=== PATIENT | male | born 1950 | race Caucasian/White ===

== ENCOUNTER 2016-10-20 19:43 | Emergency (ER) | payer OTHER, MEDICAID ==
[2016-10-20] MEDS ORDERED: ONDANSETRON 4 MG/2 ML VIAL ONE (20:19)
--- NOTE | 2016-10-20 20:28 | EDPHY ---
HPI/HX/ROS/PE/MDM Narrative: CHIEF COMPLAINT: Vomiting, memory deficits HISTORY OF PRESENT ILLNESS: This patient is a 66 year old male with history of paranoid schizophrenia who presents to the Emergency Department complaining of acute onset vomiting beginning this morning and memory loss over the past 2-3 days. He states that he did not drink any water yesterday because he "wasn't thinking straight." Per brother, the patient has often been unable to answer questions over the past couple of days or has responded with, "I don't remember. " The patient denies any additional complaints including fever, cough, shortness of breath, or chest pain. No recent falls or head injuries. He has had one prior visit to the ED for memory loss which was found to be secondary to dehydration at that time. He takes Clozaril and Stelazine to treat his schizophrenia and states that he has been compliant with these medications. REVIEW OF SYSTEMS: Aside from elements discussed in the HPI, a comprehensive 10-point review of systems was reviewed and is negative. History and ROS are limited secondary to the patient's psychiatric condition. PAST MEDICAL HISTORY: Paranoid schizophrenia SOCIAL HISTORY: Brother (masonry contractor) and niece at bedside. PHYSICAL EXAM: VITAL SIGNS: Reviewed by me GENERAL: Well-developed, disheveled, resting comfortably in no respiratory distress. HEENT: Atraumatic. Eyes: No icterus, no injection. Mouth: moist mucous membranes. No erythema or lesions. Neck: supple with no adenopathy. LUNGS: Clear to auscultation bilaterally, no wheezes, rhonchi or rales. CARDIAC: Regular rate and rhythm, no rubs, murmurs or gallops. ABDOMEN: Soft, nontender, nondistended, bowel sounds normal. BACK: No CVA tenderness. EXTREMITIES: No trauma. No edema. Range of motion is normal throughout. NEURO: Alert and oriented x3, grossly nonfocal. SKIN: Warm and dry, no rash. PSYCHIATRIC: Normal mentation, no agitation. Portions of this note were transcribed by a medical liaison. I personally performed a history, physical exam, medical decision making, and confirmed accuracy of information the transcribed note. ED Course: 66-year-old male with history of paranoid schizophrenia presents with acute onset vomiting over the past 24 hours and complaint of worsening memory loss over the past 2-3 days. He is alert at time of presentation. His exam is benign. Will proceed with labs. IV established. 0.5mg IV Dilaudid, 4mg IV Zofran, and 1L IV NS administered. Labs obtained and are unremarkable. ETOH screen is negative. 2146: The patient is up and walking around the Emergency Department without difficulty. He reports improvement to his nausea following administration of Zofran and fluids. He will be administered an additional 1L IV NS and pass a PO challenge prior to discharge. He will be given customary return precautions as discussed with his brother/masonry contractor and instructions to follow-up with his PCP for any persistent complaints. MDM: Differential diagnosis of the patient's nausea and vomiting was considered including but not limited to gastroenteritis, gastritis, alcohol intoxication, withdrawal symptoms, intraabdominal processes including appendicitis, pancreatitis, bowel obstruction and medication side effect. After the history was obtained and physical exam performed, the following differential for the patient's altered mental status was considered included but was not limited to hypoglycemia, electrolyte disturbances, intercranial hemorrhage, tumor, drug or alcohol intoxication, stroke, or TIA. - Data Points Laboratory Results: Laboratory Results 10/20/16 20:15 10/20/16 20:15 Medications Given: Discontinued Medications Hydromorphone HCl (Dilaudid) 0.5 mg IVP EDNOW ONE Stop: 10/20/16 20:49 Last Admin: 10/20/16 21:37 Dose: Not Given Sodium Chloride (Ns) 1,000 mls @ 0 mls/hr IV ONCE ONE PRN Reason: Wide Open Stop: 10/20/16 20:31 Last Admin: 10/20/16 20:32 Dose: 1,000 mls Sodium Chloride (Ns) 1,000 mls @ 0 mls/hr IV ONCE ONE PRN Reason: Wide Open Stop: 10/20/16 21:56 Last Admin: 10/20/16 22:05 Dose: 1,000 mls Ondansetron HCl (Zofran) 4 mg IVP EDNOW ONE Stop: 10/20/16 20:31 Last Admin: 10/20/16 20:32 Dose: 4 mg Ondansetron HCl (Zofran Odt 4 Mg Prepack#2) 1 btl TAKEHOME EDNOW ONE Stop: 10/20/16 22:50 Last Admin: 10/20/16 22:30 Dose: 1 btl General Time Seen by Provider: 10/20/16 20:18 Initial Vital Signs: Initial Vital Signs Temperature (C) 36.8 C 10/20/16 19:50 Heart Rate 77 10/20/16 19:50 Respiratory Rate 20 10/20/16 19:50 Blood Pressure 150/65 H 10/20/16 19:50 O2 Sat (%) 96 10/20/16 19:50 O2 Delivery Mode Room Air Allergies/Adverse Reactions: Penicillins Allergy (Unknown, Verified 02/28/15 21:50) Rash CATS Allergy (Uncoded 02/28/15 21:50) Itching Home Medications: Medication Instructions Recorded cloZAPine [Clozaril (*)] 200 mg PO DAILY@07/23/09 Docusate Sodium [Colace 100 MG (*)] 200 mg PO HS@23 PRN 10/02/14 Trifluoperazine HCl [Stelazine 2MG 2 mg PO BID@10/02/14 (*)] cloZAPine [Clozaril (*)] 100 mg PO DAILY@10/02/14 Ondansetron Odt [Zofran Odt 4 mg 4 mg PO Q6 PRN #8 tab 10/20/16 (RX)] Departure - Departure Disposition: Home, Routine, Self-Care Clinical Impression: Dehydration, Nausea Condition: Good Instructions: Ondansetron (By mouth), Dehydration (ED), Acute Nausea and Vomiting (ED) Additional Instructions: 1. Take 4mg Zofran every 4-6 hours as needed for nausea and vomiting. 2. Drink plenty of fluids. It may help to drink only clear fluids until your nausea improves. I recommend a bland diet when you feel ready to eat. 3. Follow-up with your primary care provider if your nausea and confusion does not improve in the next 2-3 days. 4. Return to the Emergency Department if you experience severe abdominal pain, uncontrollable vomiting, severe headache, worsening confusion, or for other serious concerns. Referrals: Jhonatan Lyles MD [Primary Care Provider] - As per Instructions Prescriptions: Ondansetron Odt [Zofran Odt 4 mg (RX)] 4 mg PO Q6 PRN #8 tab PRN Reason: Nausea Report Scribed for: Tamara Mathew Report Scribed by: Marlyn Mora Date of Report: 10/20/16 Time of Report: 20:22
[2016-10-20] MEDS ORDERED: ONDANSETRON 4 MG/2 ML VIAL IVP ONE (20:30)
[2016-10-20] MEDS ORDERED: NS 1,000 ML IV ONE ×2 (20:30→21:55)
[2016-10-20 20:38] LABS: % IMMATURE GRANULYOCYTES 0.4 % (0.0-1.1); ABSOLUTE IMMATURE GRANULOCYTES 0.04 10^3/uL (0.00-0.10); ADD DIFF? NO; ADD MORPH? NO; ADD SCAN? NO; ATYPICAL LYMPHOCYTE FLAG 0 (0-99); FRAGMENT RBC FLAG 0 (0-99); HEMATOCRIT 42.4 % (40.0-51.0); HEMOGLOBIN 14.8 g/dL (13.7-17.5); LEFT SHIFT FLG 10 (0-99); LIPEMIA HEMOLYSIS FLAG 90 (0-99); MEAN CELL HEMOGLOBIN 31.6 pg (27.9-34.1); MEAN CELL HEMOGLOBIN CONCENTR. 34.9 g/dL (32.4-36.7); MEAN CELL VOLUME 90.4 fL (81.5-99.8); MEAN PLATELET VOLUME 9.6 fL (8.7-11.7); PLATELET CLUMPS FLAG 20 (0-99); PLATELET COUNT 256 10^3/uL (150-400); RED BLOOD CELL COUNT 4.69 10^6/uL (4.40-6.38); RED CELL DISTRIBUTION WIDTH 12.1 % (11.5-15.2)
[2016-10-20] MEDS ORDERED: HYDROmorphONE/DILAUDID 1 MG/ML SYR IVP ONE (20:48)
[2016-10-20 20:58] LABS: ANION GAP 14 mEq/L (8-16); CALCIUM 9.4 mg/dL (8.5-10.4); CARBON DIOXIDE 20 mEq/l (22-31); CHLORIDE 105 mEq/L (97-110); ETHANOL SERUM < 10 mg/dL (0-10); GLOMERULAR FILTRATION RATE > 60; GLUCOSE 119 mg/dL (70-100); POTASSIUM 3.8 mEq/L (3.5-5.2); SODIUM 139 mEq/L (134-144)
[2016-10-20 21:37] LABS: COLOR YELLOW; LEUKOCYTE ESTERASE,URINE NEGATIVE (NEGATIVE); NITRITE,URINE NEGATIVE (NEGATIVE)
[2016-10-20 21:43] LABS: BACTERIA TRACE /hpf (NONE SEEN); MUCUS TRACE /lpf (NONE-1+)
[2016-10-20 22:06] VITALS: RESP 16; O2SAT 97
[2016-10-20] MEDS ORDERED: ONDANSETRON 4MG PREPACK#2 BTL TAKEHOME ONE ×2 (22:37→22:49)
[2016-10-20 22:49] VITALS: BP 142/76; PULSE 88; TEMP 98.1
== END 2016-10-20 22:50 | disposition home or self-care (01) ==
DX: E86.0 Dehydration (principal)
CPT/HCPCS: 96361; 96374; 99284; J2405; G0480

== ENCOUNTER 2016-12-28 15:39 | Emergency (ER) | payer OTHER, MEDICAID ==
[2016-12-28 15:46] VITALS: O2SAT 97
[2016-12-28] MEDS ORDERED: NS 1,000 ML IV ONE ×2 (15:59)
--- NOTE | 2016-12-28 16:02 | EDPHY ---
HPI/HX/ROS/PE/MDM Narrative: CHIEF COMPLAINT: Memory problems HPI: This patient is a 66 year old male with history of paranoid schizophrenia arriving with his family members complaining of memory difficulties. He has had similar episodes in the past which seem to be related to dehydration. Yesterday , his family noted he seemed more lethargic. Today, he began having memory difficulties and seeming much more confused that usual. He has had trouble staying awake, and has wanted to sleep all day. His brother at bedside states he wants his blood chemistries checked. The patient states he feels alright currently. He admits he has not had enough water to drink. He denies any changes in sensation in his arms or legs. He denies recent illness. No fever, chills, cough, or other associated symptoms. REVIEW OF SYSTEMS: Aside from elements discussed in the HPI, a comprehensive 10-point review of systems was reviewed and is negative. PMH: Paranoid schizophrenia SOCIAL HISTORY: Brother (insurance processor) and niece at bedside. PHYSICAL EXAM: General: Patient is somewhat disheveled. Odd affect. Patient is alert, in no acute distress. ENT:Eyes are normal to inspection. ENT inspection normal. Neck: Normal inspection. Full range of motion. Respiratory:No respiratory distress. Breath sounds normal bilaterally. Cardiovascular: Regular rate and rhythm. Strong peripheral pulses. Normal cap refill. Abdomen:The abdomen is nontender to palpation. There are no peritoneal signs. There are normal bowel sounds. Back: Normal to inspection. No tenderness to palpation. Skin: Normal color. No rash. Warm and dry. Extremities: Normal appearance. Full range of motion. Neuro: Oriented x3. Normal motor function. Normal sensory function. Portions of this note were transcribed by an ED scribe. I personally performed the history, physical exam, and medical decision making; and confirm the accuracy of the information in the transcribed note. ED Course: Plan for labs including CBC, BMP, Troponin. Plan to administer 2L IV NS for dehydration relief. Plan for CT head. 17:[address] Chung, radiologist. CT head negative for acute processes. 17:15 Reassessed patient. Offered admission for continued evaluation. The patient declines and would like to be discharged home. MDM: This patient presents with complaint by himself and his brother that his memory has been off, although they seem to agree this is a long-standing problem. They are particularly concerned that he may be dehydrated, but I see no signs of ARF or dehydration on labs or clinical exam. The patient denies any focal complaints or infectious symptoms or fever. CTH is negative. I see no signs of infectious process, CVA, ARF, pneumonia. I discussed our workup with the patient and family, and offered admission if they feel patient is unsafe at home. Family member feels comfortable taking patient home and they will monitor him closely. - Data Points Imaging Results: Imaging Impressions Head CT 12/28/16 16:00 Impression: 1. Normal CT of the head with no acute abnormality identified and no change from 2009. 2. Minimal nasal ethmoid sinus opacification. Results called and discussed with Derick Trinh MD on 12/28/2016 at 17:06 Imaging: Discussed imaging studies w/ licensed funeral director and embalmer Radiologist Laboratory Results: Laboratory Results 12/28/16 15:50 12/28/16 15:50 12/28/16 12/28/16 15:50 15:50 WBC 7.97 10^3/uL 10^3/uL (3.80-9.50) RBC 4.61 10^6/uL 10^6/uL (4.40-6.38) Hgb 14.5 g/dL g/dL (13.7-17.5) Hct 41.8 % % (40.0-51.0) MCV 90.7 fL fL (81.5-99.8) MCH 31.5 pg pg (27.9-34.1) MCHC 34.7 g/dL g/dL (32.4-36.7) RDW 11.9 % % (11.5-15.2) Plt Count 306 10^3/uL 10^3/uL (150-400) MPV 9.0 fL fL (8.7-11.7) Neut % (Auto) 79.5 % H % (39.3-74.2) Lymph % (Auto) 10.5 % L % (15.0-45.0) [place] % (Auto) 8.7 % % (4.5-13.0) Eos % (Auto) 0.3 % L % (0.6-7.6) Baso % (Auto) 0.5 % % (0.3-1.7) Nucleat RBC Rel Count 0.0 % % (0.0-0.2) Absolute Neuts (auto) 6.34 10^3/uL 10^3/uL (1.70-6.50) Absolute Lymphs (auto) 0.84 10^3/uL L 10^3/uL (1.00-3.00) Absolute Monos (auto) 0.69 10^3/uL 10^3/uL (0.30-0.80) Absolute Eos (auto) 0.02 10^3/uL L 10^3/uL (0.03-0.40) Absolute Basos (auto) 0.04 10^3/uL 10^3/uL (0.02-0.10) Absolute Nucleated RBC 0.00 10^3/uL 10^3/uL (0-0.01) Immature Gran % 0.5 % % (0.0-1.1) Immature Gran # 0.04 10^3/uL 10^3/uL (0.00-0.10) Sodium 139 mEq/L mEq/L (134-144) Potassium 3.7 mEq/L mEq/L (3.5-5.2) Chloride 104 mEq/L mEq/L (97-110) Carbon Dioxide 18 mEq/l L mEq/l (22-31) Anion Gap 17 mEq/L H mEq/L (8-16) BUN 21 mg/dL mg/dL (7-23) Creatinine 1.1 mg/dL mg/dL (0.7-1.3) Estimated GFR > 60 Glucose 106 mg/dL H mg/dL (70-100) Calcium 9.0 mg/dL mg/dL (8.5-10.4) Troponin I < 0.012 ng/mL ng/mL (0-0.034) Medications Given: Discontinued Medications Sodium Chloride (Ns) 1,000 mls @ 0 mls/hr IV ONCE ONE PRN Reason: Wide Open Stop: 12/28/16 16:00 Last Admin: 12/28/16 16:02 Dose: 1,000 mls Sodium Chloride (Ns) 1,000 mls @ 0 mls/hr IV ONCE ONE; Wide Open PRN Reason: Protocol Stop: 12/28/16 16:00 Last Admin: 12/28/16 16:03 Dose: Not Given General Time Seen by Provider: 12/28/16 15:52 Initial Vital Signs: Initial Vital Signs Temperature (C) 36.8 C 12/28/16 15:42 Heart Rate 89 12/28/16 15:42 Respiratory Rate 16 12/28/16 15:42 Blood Pressure 160/88 H 12/28/16 15:42 O2 Sat (%) 97 12/28/16 15:42 O2 Delivery Mode Room Air Allergies/Adverse Reactions: Penicillins Allergy (Unknown, Verified 12/29/16 10:49) Rash CATS Allergy (Uncoded 02/28/15 21:50) Itching Home Medications: Medication Instructions Recorded cloZAPine [Clozaril (*)] 200 mg PO DAILY@07/23/09 Trifluoperazine HCl [Stelazine 2MG 2 mg PO BID@10/02/14 (*)] cloZAPine [Clozaril (*)] 100 mg PO DAILY@10/02/14 Departure - Departure Disposition: Home, Routine, Self-Care Clinical Impression: Altered mental status Condition: Good Instructions: Altered Mental Status (ED) Additional Instructions: 1. Follow up with your primary care physician next week. 2. Drink plenty of fluids and stay well hydrated. 3. Return to the emergency department for severe headache, worsening confusion, fever, or other worsening of condition. Referrals: Jhonatan Lyles MD [Primary Care Provider] - As per Instructions Report Scribed for: Derick Trinh Report Scribed by: Shadia Land Date of Report: 12/28/16 Time of Report: 16:02
[2016-12-28 16:05] LABS: % IMMATURE GRANULYOCYTES 0.5 % (0.0-1.1); ABSOLUTE IMMATURE GRANULOCYTES 0.04 10^3/uL (0.00-0.10); ADD DIFF? NO; ADD MORPH? NO; ADD SCAN? NO; ATYPICAL LYMPHOCYTE FLAG 10 (0-99); FRAGMENT RBC FLAG 0 (0-99); HEMATOCRIT 41.8 % (40.0-51.0); HEMOGLOBIN 14.5 g/dL (13.7-17.5); LEFT SHIFT FLG 0 (0-99); LIPEMIA HEMOLYSIS FLAG 90 (0-99); MEAN CELL HEMOGLOBIN 31.5 pg (27.9-34.1); MEAN CELL HEMOGLOBIN CONCENTR. 34.7 g/dL (32.4-36.7); MEAN CELL VOLUME 90.7 fL (81.5-99.8); PLATELET CLUMPS FLAG 0 (0-99); PLATELET COUNT 306 10^3/uL (150-400); RED BLOOD CELL COUNT 4.61 10^6/uL (4.40-6.38); RED CELL DISTRIBUTION WIDTH 11.9 % (11.5-15.2)
[2016-12-28 16:16] LABS: ANION GAP 17 mEq/L (8-16); CARBON DIOXIDE 18 mEq/l (22-31); CHLORIDE 104 mEq/L (97-110); CREATININE 1.1 mg/dL (0.7-1.3); GLOMERULAR FILTRATION RATE > 60; GLUCOSE 106 mg/dL (70-100); POTASSIUM 3.7 mEq/L (3.5-5.2); SODIUM 139 mEq/L (134-144)
[2016-12-28 16:27] LABS: TROPONIN I < 0.012 ng/mL (0-0.034)
[2016-12-28 17:21] VITALS: BP 159/85; PULSE 84; RESP 18; TEMP 98.6
== END 2016-12-28 17:23 | disposition home or self-care (01) ==
DX: R41.82 Altered mental status, unspecified (principal)

== ENCOUNTER 2016-12-29 10:48 | Observation (INO) | payer OTHER, MEDICAID ==
[2016-12-29] MEDS ORDERED: ONDANSETRON 4 MG/2 ML VIAL IVP ONE ×2 (11:09→11:42)
[2016-12-29] MEDS ORDERED: NS 1,000 ML IV ONE ×2 (11:12→11:42)
[2016-12-29 11:27] LABS: % IMMATURE GRANULYOCYTES 0.7 % (0.0-1.1); ABSOLUTE IMMATURE GRANULOCYTES 0.07 10^3/uL (0.00-0.10); ADD DIFF? NO; ADD MORPH? NO; ADD SCAN? NO; ATYPICAL LYMPHOCYTE FLAG 0 (0-99); FRAGMENT RBC FLAG 0 (0-99); HEMATOCRIT 42.3 % (40.0-51.0); HEMOGLOBIN 14.7 g/dL (13.7-17.5); LEFT SHIFT FLG 0 (0-99); LIPEMIA HEMOLYSIS FLAG 90 (0-99); MEAN CELL HEMOGLOBIN 31.5 pg (27.9-34.1); MEAN CELL HEMOGLOBIN CONCENTR. 34.8 g/dL (32.4-36.7); MEAN CELL VOLUME 90.6 fL (81.5-99.8); MEAN PLATELET VOLUME 9.1 fL (8.7-11.7); PLATELET CLUMPS FLAG 20 (0-99); PLATELET COUNT 328 10^3/uL (150-400); RED BLOOD CELL COUNT 4.67 10^6/uL (4.40-6.38); RED CELL DISTRIBUTION WIDTH 11.9 % (11.5-15.2)
--- NOTE | 2016-12-29 11:47 | CPEKG ---
Heart Rate: 65 RR Interval: 923 P-R Interval: 132 QRSD Interval: 96 QT Interval: 444 QTC Interval: 462 P [place]: 85 QRS [place]: 77 T Wave [place]: 44 EKG Severity - NORMAL ECG - EKG Impression: SINUS RHYTHM Electronically Signed By: Conchita Freed 29-Dec-2016 14:59:23
[2016-12-29 11:51] LABS: ALANINE AMINOTRANSFERASE 31 IU/L (21-72); ALBUMIN 4.2 g/dL (3.5-5.0); ALKALINE PHOSPHATASE 98 IU/L (38-126); ANION GAP 15 mEq/L (8-16); ASPARTATE AMINOTRANSFERASE 36 IU/L (17-59); BILIRUBIN,TOTAL 1.2 mg/dL (0.1-1.4); BILIRUBIN-CONJUGATED 0.3 mg/dL (0.0-0.5); BILIRUBIN-UNCONJUGATED 0.9 mg/dL (0.0-1.1); CALCIUM 9.3 mg/dL (8.5-10.4); CARBON DIOXIDE 23 mEq/l (22-31); CHLORIDE 104 mEq/L (97-110); GLOMERULAR FILTRATION RATE > 60; GLUCOSE 129 mg/dL (70-100); POTASSIUM 3.7 mEq/L (3.5-5.2); SODIUM 142 mEq/L (134-144)
[2016-12-29 12:03] LABS: TROPONIN I < 0.012 ng/mL (0-0.034)
--- NOTE | 2016-12-29 12:08 | EDPHY ---
H & P Stated Complaint: "I think I'm dehydrated" here yesterday (unrelated issue);n/v since last pm Time Seen by Provider: 12/29/16 11:19 HPI/ROS: CHIEF COMPLAINT: vomiting since midnight HISTORY OF PRESENT ILLNESS: 66-year-old male history of schizophrenia, lives by himself, arrives via private vehicle with his brother who is also care provider stating the patient has had intractable nausea vomiting abdominal pain since midnight. He was seen emergency department yesterday for complaints of memory difficulties at which point he had CT imaging of the brain which is negative for acute pathology. The brother states he is experiencing normal mentation. No fever no chills. No abdominal trauma. Unknown if history of abdominal surgeries or not. No flu-like symptoms. No suicidal or homicidal ideation Brother states that initial interview that the patient necessitates admission because he cannot be discharged home as he is concerned about his ability to care for himself PRIMARY CARE PROVIDER:Dr. Jhonatan Lyles REVIEW OF SYSTEMS: A ten point review of systems was performed and is negative with the exception of the items mentioned in the HPI PAST MEDICAL & SURGICAL HISTORY: Schizophrenia. SOCIAL HISTORY: Nonsmoker lives by self PHYSICAL EXAM (Prior to examination, patient consented to physical exam, hands were washed and my usual and customary physical exam procedures followed) 1) GENERAL: Well-developed, well-nourished, alert and oriented. appears nontoxic, retching 2) HEAD: Normocephalic, atraumatic 3) HEENT: Pupils equal, round, reactive to light bilaterally. Sclera anicteric. Nasopharynx, oropharynx, clear, no lesions. Dry mucous membranes 4) NECK: Full range of motion, no meningeal signs. 5) LUNGS: Clear auscultation bilaterally, no wheezes, no rhonchi, no retractions. 6) HEART: Regular rate and rhythm, no murmur, no heave, no gallop. 7) ABDOMEN: No guarding, no rebound, no focal tenderness, negative McBurney's, negative Norris's, negative Rovsing's, negative peritoneal sign,I am unable to elicit any abdominal pain on exam 8) MUSCULOSKELETAL: Moving all extremities, no focal areas of tenderness, no obvious trauma. No peripheral edema or discoloration. 9) BACK: No CVA tenderness, no midline vertebral tenderness, no fluctuance, no step-off, no obvious trauma, no visual or palpable abnormality. 10) SKIN: No rash, no petechiae. 11) : Normal male external genitalia bilateral cremasteric reflex present and brisk, no high-riding testicle nontender testicles. . DIFFERENTIAL DIAGNOSIS: My differential diagnosis includes, but is not limited to, acute appendicitis, acute cholecystitis, bowel obstruction, acute pancreatitis,, gastritis and urinary tract infection. The patient understands that this diagnosis is provisional and can never be 100% accurate. This is a partial list of diagnoses considered. These considerations are based on history , physical exam, past history and reassessment. - Personal History Current Tetanus Diphtheria and Acellular Pertussis (TDAP): Yes Tetanus Vaccine Date: 2008 - Medical/Surgical History Hx Asthma: No Hx Chronic Respiratory Disease: No Hx Diabetes: No Hx Cardiac Disease: No Hx Renal Disease: No Hx Cirrhosis: No Hx Alcoholism: No Hx HIV/AIDS: No Hx Splenectomy or Spleen Trauma: No Other PMH: "pre-diabetic, paranoid schizophrania, right knee surgery, - Social History Smoking Status: Never smoked Constitutional: Initial Vital Signs Temperature (C) 36.7 C 12/29/16 10:50 Heart Rate 64 12/29/16 10:50 Respiratory Rate 16 12/29/16 10:50 Blood Pressure 123/82 H 12/29/16 10:50 O2 Sat (%) 98 12/29/16 10:50 O2 Delivery Mode Room Air Allergies/Adverse Reactions: Penicillins Allergy (Unknown, Verified 12/29/16 10:49) Rash CATS Allergy (Uncoded 02/28/15 21:50) Itching Home Medications: Medication Instructions Recorded cloZAPine [Clozaril (*)] 200 mg PO HS 07/23/09 Trifluoperazine HCl [Stelazine 2MG 2 mg PO BID 10/02/14 (*)] cloZAPine [Clozaril (*)] 100 mg PO DAILY 10/02/14 Docusate Sodium [Colace 100 MG (*)] 300 mg PO HS 12/29/16 Medical Decision Making - Diagnostics Imaging Results: Imaging Impressions Abdomen X-Ray 12/29/16 11:33 Impression: No obstruction. No source for pain identified. Chest X-Ray 12/29/16 11:33 Impression: No pneumonia. Abdomen CT 12/29/16 12:06 Impression: 1. Suspect mild gastroenteritis. There is no evidence of a small bowel obstruction. 2. Mild "thickening" of the distal portion of the appendix with no periappendiceal inflammation or fluid. Is there are any localized tenderness in this location? 3. Urinary bladder distention with mild prostatomegaly. 4. Chronic atrophy of the left kidney with some compensatory hypertrophy of the right kidney. Findings were discussed with Christina Freedman PA-C at 13:55, on 12/29/2016. Images reviewed myself ED Course/Re-evaluation: 2:15 p.m.: Re-evaluation, he complains of continued nausea and retching after multiple dosages of Zofran and Phenergan. I re-examined his abdomen at this time which remained soft no guarding or rebound no McBurney's point pain. Reviewed the imaging results. there is no by the radiologist indicating mild thickening of the distal portion of the appendix. On initial and on re- evaluation of the patient I am unable to elicit pain in general to the abdomen and more specifically at McBurney's point. The family feels the patient should not be discharged as they do not feel he is able to care for himself at this time given his current vomiting and retching. Plan will be admission to hospital service.Discussed case with secondary Supervising physician Dr. Conchita Freed. Phone consultation with hospitalist Dr. Lazo at 2:23 p.m. who will admit patient. - Data Points Laboratory Results: Laboratory Results 12/29/16 11:15 12/29/16 11:15 12/29/16 12/29/16 11:15 11:15 WBC 10.51 10^3/uL H 10^3/uL (3.80-9.50) RBC 4.67 10^6/uL 10^6/uL (4.40-6.38) Hgb 14.7 g/dL g/dL (13.7-17.5) Hct 42.3 % % (40.0-51.0) MCV 90.6 fL fL (81.5-99.8) MCH 31.5 pg pg (27.9-34.1) MCHC 34.8 g/dL g/dL (32.4-36.7) RDW 11.9 % % (11.5-15.2) Plt Count 328 10^3/uL 10^3/uL (150-400) MPV 9.1 fL fL (8.7-11.7) Neut % (Auto) 85.4 % H % (39.3-74.2) Lymph % (Auto) 8.6 % L % (15.0-45.0) [place] % (Auto) 4.9 % % (4.5-13.0) Eos % (Auto) 0.1 % L % (0.6-7.6) Baso % (Auto) 0.3 % % (0.3-1.7) Nucleat RBC Rel Count 0.0 % % (0.0-0.2) Absolute Neuts (auto) 8.98 10^3/uL H 10^3/uL (1.70-6.50) Absolute Lymphs (auto) 0.90 10^3/uL L 10^3/uL (1.00-3.00) Absolute Monos (auto) 0.52 10^3/uL 10^3/uL (0.30-0.80) Absolute Eos (auto) 0.01 10^3/uL L 10^3/uL (0.03-0.40) Absolute Basos (auto) 0.03 10^3/uL 10^3/uL (0.02-0.10) Absolute Nucleated RBC 0.00 10^3/uL 10^3/uL (0-0.01) Immature Gran % 0.7 % % (0.0-1.1) Immature Gran # 0.07 10^3/uL 10^3/uL (0.00-0.10) Sodium 142 mEq/L mEq/L (134-144) Potassium 3.7 mEq/L mEq/L (3.5-5.2) Chloride 104 mEq/L mEq/L (97-110) Carbon Dioxide 23 mEq/l mEq/l (22-31) Anion Gap 15 mEq/L mEq/L (8-16) BUN 23 mg/dL mg/dL (7-23) Creatinine 1.0 mg/dL mg/dL (0.7-1.3) Estimated GFR > 60 Glucose 129 mg/dL H mg/dL (70-100) Calcium 9.3 mg/dL mg/dL (8.5-10.4) Total Bilirubin 1.2 mg/dL mg/dL (0.1-1.4) Conjugated Bilirubin 0.3 mg/dL mg/dL (0.0-0.5) Unconjugated Bilirubin 0.9 mg/dL mg/dL (0.0-1.1) AST 36 IU/L IU/L (17-59) ALT 31 IU/L IU/L (21-72) Alkaline Phosphatase 98 IU/L IU/L (38-126) Troponin I < 0.012 ng/mL ng/mL (0-0.034) Total Protein 7.0 g/dL g/dL (6.3-8.2) Albumin 4.2 g/dL g/dL (3.5-5.0) Lipase 99.0 IU/L IU/L (23-300) Medications Given: Discontinued Medications Sodium Chloride (Ns) 1,000 mls @ 0 mls/hr IV ONCE ONE; Wide Open PRN Reason: Protocol Stop: 12/29/16 11:13 Last Admin: 12/29/16 11:15 Dose: 1,000 mls Sodium Chloride (Ns) 1,000 mls @ 0 mls/hr IV ONCE ONE PRN Reason: Wide Open Stop: 12/29/16 11:43 Last Admin: 12/29/16 12:00 Dose: 1,000 mls Ondansetron HCl (Zofran) 4 mg IVP EDNOW ONE Stop: 12/29/16 11:10 Last Admin: 12/29/16 11:15 Dose: 4 mg Ondansetron HCl (Zofran) 4 mg IVP EDNOW ONE Stop: 12/29/16 11:43 Last Admin: 12/29/16 12:00 Dose: 4 mg Promethazine HCl (Phenergan) 25 mg IVP EDNOW ONE Stop: 12/29/16 13:48 Last Admin: 12/29/16 13:51 Dose: 25 mg Departure - Departure Disposition: [facility] Inpatient Acute Clinical Impression: Nausea & vomiting Qualifiers: Vomiting type: unspecified Vomiting Intractability: intractable Qualified Code( s): R11.2 - Nausea with vomiting, unspecified Condition: Fair
[2016-12-29] MEDS ORDERED: IOPAMIDOL (ISOVUE-300) 100 ML BTL ONE (12:44)
[2016-12-29] MEDS ORDERED: PROMETHAZINE HCL 25 MG/ML INJ IVP ONE (13:47)
--- NOTE | 2016-12-29 15:42 | PDGENHP ---
History and Physical History and Physical: CC:NAUSEA AND VOMITING HISTORY: This patient comes into the ER today brought by family specifically his brother because of ongoing vomiting that started last night. He has had several episodes of emesis without blood, without abdominal pain, without changes in bowel function. The only the symptoms that the patient and his family notices that he has had more difficulty with memory for the last couple of days as well. He denies any chest pain or shortness of breath. When I specifically asked him he does recall having some chills and feeling hot at times as if he had ever having fever. He has no sore throat, earache, upper respiratory or lower respiratory symptoms, joint pains or myalgias, urinary symptoms. He has not traveled anywhere, and has not been around anyone else with similar symptoms. Notably the patient had a very similar episode 6 months ago she. ROS: A comprehensive 10 system review revealed no other significant findings PAST MEDICAL HISTORY: -Schizophrenia -developmental delay -Chronic gait instability of uncertain etiology, possibly related to the same cause this is developmental delay, occasional falls at home -an episode of chest pain with negative evaluation here FAMILY MEDICAL HISTORY: dementia in his father SOCIAL HISTORY: former cigar smoker now without tobacco use Previous alcohol consumption was moderate and is now sober MEDICATIONS: The patients list has been reconciled by our clinical pharmacist in the EMR. I have reviewed the list and ordered appropriate medicines. PHYSICAL EXAMINATION: Vital Signs: stable without fever [place]: sinus rhythm Examination: General: alert, oriented, good mentation, relaxed Skin: warm, dry, good color, no rash HEENT: normal Neck: no mass or jvd Resps: relaxed Lungs: clear breath sounds Heart: regular, no murmur Abdomen: soft, nondistended, nontender, +BS, no mass Upper Extremities: normal Lower Extremities: no edema, warm; the joints are unremarkable No Bleeding or bruising Neurologic: normal speech/language, normal etiologist, no focal weakness LABORATORY DATA: RADIOLOGY STUDIES: CT scan of abdomen and pelvis with contrast, my personal review of images: I do not see any specific acute abnormalities related to his current presentation. The radiologist has read thickening of part of the duodenum and proximal jejunum. I reviewed this. I do not see anything that really looks inflammatory per se or otherwise concerning about the bow and believe that this thickening may be a matter of contraction on the current images. Radiologist also comments on possible thickening of appendix. Chest x-ray is also done in the ER and I have reviewed the images from that and my impression: Normal chest x-ray, also read as normal by the radiologist 12 LEAD EKG: my personal reading of the 12 lead EKG from the ER: Normal 12 lead EKG was sinus rhythm ASSESSMENT: -INTRACTABLE NAUSEA VOMITING, UNCERTAIN ETIOLOGY BUT SUSPECT INFECTIOUS -MILD HYPERGLYCEMIA PARTLY RELATED TO THE ABOVE -IMPAIRED MEMORY NOTED BY PATIENT AND FAMILY IS MILD ON EXAMINATION HERE AND LIKELY CAUSED BY HIS GASTROINTESTINAL ILLNESS - POSSIBLY ABNORMAL CT SCAN OF APPENDIX WITH NO PAIN, TENDERNESS, OR FEVER - UNCERTAIN SIGNIFICANCE OF THIS FINDING AT THIS TIME PLANS: - placed on observation here in hospital -Antiemetics -IV hydration -Will follow his abdomen particularly the lower abdominal exam in regard to the question of abnormal appendix on CT as above I have reviewed the patient's case in detail with Jered hamlin of the emergency room I have reviewed the patient's past medical records as part of this assessment, including previous hospital admission records
[2016-12-29] MEDS ORDERED: ACETAMINOPHEN 325 MG TAB PO PRN (15:48)
[2016-12-29] MEDS ORDERED: TEMAZEPAM 15 MG CAP PO PRN (15:48)
[2016-12-29] MEDS ORDERED: ZOLPIDEM TARTRATE 5 MG TAB PO PRN (15:48)
[2016-12-29] MEDS ORDERED: ONDANSETRON DISINTEGRATING 4 MG TAB PO PRN (15:48)
[2016-12-29] MEDS ORDERED: ONDANSETRON 4 MG/2 ML VIAL IVP PRN (15:48)
[2016-12-29] MEDS ORDERED: NS 1,000 ML IV SCH (16:00)
[2016-12-29] MEDS ORDERED: cloZAPine 100 MG TAB PO SCH (21:00)
[2016-12-29] MEDS: TRIFLUOPERAZINE HCL 2 MG TAB PO SCH (22:07)
[2016-12-30 06:21] LABS: % IMMATURE GRANULYOCYTES 0.6 % (0.0-1.1); ABSOLUTE IMMATURE GRANULOCYTES 0.07 10^3/uL (0.00-0.10); ADD DIFF? NO; ADD MORPH? NO; ADD SCAN? NO; ATYPICAL LYMPHOCYTE FLAG 0 (0-99); FRAGMENT RBC FLAG 0 (0-99); HEMATOCRIT 34.4 % (40.0-51.0); HEMOGLOBIN 11.9 g/dL (13.7-17.5); LEFT SHIFT FLG 0 (0-99); LIPEMIA HEMOLYSIS FLAG 90 (0-99); MEAN CELL HEMOGLOBIN 31.8 pg (27.9-34.1); MEAN CELL HEMOGLOBIN CONCENTR. 34.6 g/dL (32.4-36.7); MEAN PLATELET VOLUME 9.1 fL (8.7-11.7); PLATELET CLUMPS FLAG 10 (0-99); PLATELET COUNT 254 10^3/uL (150-400); RED BLOOD CELL COUNT 3.74 10^6/uL (4.40-6.38)
[2016-12-30 06:41] LABS: ANION GAP 9 mEq/L (8-16); CARBON DIOXIDE 22 mEq/l (22-31); CHLORIDE 110 mEq/L (97-110); CREATININE 0.9 mg/dL (0.7-1.3); GLOMERULAR FILTRATION RATE > 60; GLUCOSE 81 mg/dL (70-100); POTASSIUM 3.5 mEq/L (3.5-5.2); SODIUM 141 mEq/L (134-144)
[2016-12-30] MEDS ORDERED: ENOXAPARIN 40 MG/0.4 ML SYR SC SCH (09:00)
[2016-12-30] MEDS ORDERED: cloZAPine 100 MG TAB PO SCH (09:00)
[2016-12-30 09:05] VITALS: BP 93/48; PULSE 58; RESP 16; TEMP 98.5; O2SAT 95
[2016-12-30] MEDS ORDERED: PANTOPRAZOLE SODIUM 40 MG in NS 100 ML IV SCH (09:15)
[2016-12-30] MEDS: TRIFLUOPERAZINE HCL 2 MG TAB PO SCH (10:31)
[2016-12-30] MEDS ORDERED: MAGNESIUM HYDROXIDE 30 ML UDCUP PO ONE (13:08)
[2016-12-30] MEDS ORDERED: POLYETHYLENE GLYCOL 3350 17 GM PKT PO ONE (13:09)
[2016-12-30] MEDS: POLYETHYLENE GLYCOL 3350 17 GM PKT PO SCH ×2 (14:08→14:12)
--- NOTE | 2016-12-30 14:30 | PDIAF ---
- Diagnosis Code Status: Full Code - Medication Management Discharge Medications: Medications to Continue on Transfer cloZAPine [Clozaril (*)] 200 mg PO HS 07/23/09 [Last Taken 12/28/16] Trifluoperazine HCl [Stelazine 2MG (*)] 2 mg PO BID 10/02/14 [Last Taken 21:00] cloZAPine [Clozaril (*)] 100 mg PO DAILY 10/02/14 [Last Taken 12/28/16] Docusate Sodium [Colace 100 MG (*)] 300 mg PO HS 12/29/16 [Last Taken 12/28/16] Acetaminophen [Tylenol 325mg (*)] 650 mg PO Q4HRS PRN #0 tab 12/30/16 [Last Taken Unknown] Polyethylene Glycol 3350 [Miralax 17 gm (*)] 17 gm PO DAILY #0 pkt 12/30/16 [ Last Taken Unknown] Polyethylene Glycol 3350 [Miralax 17 gm (*)] 17 gm PO DAILY #1 btl 12/30/16 [ Last Taken Unknown] Longterm Antibiotics: n/a Discharge Medications: Refer to the Discharge Home Medication list for PRN reason. PICC Care - Routine: N/A - Orders Services needed: Home Care, Master Director Inbound Sales, Physical Therapy Home Care Face to Face: I certify that this patient was under my care and that I had the required [id number] encounter meeting the encounter requirements on the discharge day. My findings support the fact that the patient is homebound as defined in CMS Chapter 7 Medicare Benefits Manual 30.1.1, The condition of the patient is such that there exists a normal inability to leave home and consequently, leaving home would require a considerable and taxing effort. Oxygen: none Diet Recommendation: no restrictions on diet Diet Texture: Regular Texture Diet Comer: Not applicable Additional: schizophrenia- [facility] of [facility], lives independently - Follow Up Care Current Providers and Referrals: Jhonatan Lyles MD [Primary Care Provider] - 1-2 days Nilo Means MD [Non Staff Provider ()] - 1-2 days
[2016-12-30] MEDS ORDERED: DOCUSATE SODIUM 100 MG CAP PO SCH (21:00)
--- NOTE | 2016-12-30 21:44 | GDS ---
[f rep st] DISCHARGE SUMMARY CONSULTS: None. PROCEDURES: Abdominal CT, chest x-ray, abdominal x-ray. HISTORY AND PHYSICAL: Please see previously dictated note by Dr. Lazo. ADMISSION DIAGNOSES: 1. Intractable nausea, vomiting. 2. Hyperglycemia. 3. Schizophrenia. DISCHARGE DIAGNOSES: 1. Intractable nausea, vomiting, resolved. 2. Hyperglycemia. 3. Schizophrenia. 4. Anemia. HOSPITAL COURSE BY PROBLEM LIST: 1. Intractable nausea, vomiting. He was initially admitted because of concerns about dehydration, intractable nausea, vomiting. He was given IV fluids and antiemetics. His symptoms responded to th anastasia interventions. On the day of discharge, he was tolerating a diet without any further symptoms. He lives independently, but he is connected with [facility], and his brother is local ( he is his [id number]). He is instructed to have a bland diet to ensure that his symptoms are completely resolved. Possible constipation was noted while he was here. He was given a bowel prot ocol, and should follow up with his primary care provider. 2. Mild hyperglycemia. He was noted to be 129 on admission, but no further elevated blood sugars w ere noted. 3. Anemia. Initially his hemoglobin was 14.7, with a hematocrit 42.3. On the day of discharge, it was noted to be 34.4 hematocrit. Repeat hematocrit was done about 6 hours later, and was stable at 35.7. He does have several baseline hemoglobins, which are all in the 40s. So, this is a drop fro m his baseline. However, it does appear stable, and he does not have any acute signs of GI bleeding . We will defer further evaluation and workup to his primary care provider. DISCHARGE MEDICATIONS: He should continue all of his chronic home medications. The only addition w as MiraLAX daily, as he does say he often has constipation. DISCHARGE INSTRUCTIONS: I have instructed him to follow up with his primary psychiatrist, Nilo zendejas, as soon as possible. I have instructed him to follow up with his primary care provider, who is Dr. Lyles, sometime this week also. Please recheck CBC as an outpatient and do evaluation as need ed. /[id number]/MODL
[2016-12-31] MEDS ORDERED: POLYETHYLENE GLYCOL 3350 17 GM PKT PO SCH (09:00)
== END 2016-12-30 17:48 | disposition home health service (06) ==
LOC: F1N 15:33
PROVIDERS: ADMIT Internal Medicine; ATTEND Internal Medicine
DX: R11.2 Nausea with vomiting, unspecified (principal); R73.9 Hyperglycemia, unspecified; F20.0 Paranoid schizophrenia; D64.9 Anemia, unspecified; Z88.0 Allergy status to penicillin; Z87.891 Personal history of nicotine dependence
CPT/HCPCS: 71020; 74000; 74177; 93005; 97161; 97165; G0378; G8978; G8979; G8980; G8987; G8988; J2405; J2550; Q9967; 96374

== ENCOUNTER 2017-01-04 22:21 | Emergency (ER) | payer OTHER, MEDICAID ==
[2017-01-04 22:29] VITALS: RESP 16; TEMP 98.4
[2017-01-04] MEDS ORDERED: NS 1,000 ML IV ONE ×2 (22:33)
[2017-01-04] MEDS ORDERED: ONDANSETRON DISINTEGRATING 4 MG TAB PO ONE (22:33)
--- NOTE | 2017-01-04 22:50 | EDPHY ---
H & P Stated Complaint: nausea, lack of appetite Time Seen by Provider: 01/04/17 22:29 HPI/ROS: HPI The patient presents with nausea which has been present for the last 1 week or so which is intermittent and associated with lack of appetite, decreased energy. The patient was admitted to the hospital from December 29 to for nausea and vomiting. This was thought to be due to infectious cause and his workup was relatively unremarkable. Since then, he has been fearful of consuming water because he does not want to vomit. He was able to eat chicken noodle soup about an hour prior to presentation. It sounds that he is dealing with some memory loss as well over the last several months which adds to his difficulty drinking fluids. He lives in apartments for disabled people, though does not have any in-home care. It is unclear if he is taking his medications. He does not have any abdominal pain, last bowel movement was 3-4 days ago, he has not had a fever.. REVIEW OF SYSTEMS Constitutional: No fever, no chills. Eyes: No discharge. ENT: No sore throat. Cardiovascular: No chest pain, no palpitations. Respiratory: No cough, no shortness of breath. Gastrointestinal: No abdominal pain, no vomiting. Genitourinary: No hematuria. Musculoskeletal: No back pain. Skin: No rashes. Neurological: No headache. PMHx: Recent admission for nausea and vomiting, schizophrenia, memory loss Soc Hx: Lives independently in apartments for disabled people PHYSICAL General Appearance: Alert, no distress Eyes: Pupils equal and round no pallor or injection ENT, Mouth: Mucous membranes dry Respiratory: There are no retractions, lungs are clear to auscultation Cardiovascular: Regular rate and rhythm Gastrointestinal: Abdomen is soft and non-tender, no masses, bowel sounds normal Neurological: A&O, moves all extremities Skin: Warm and dry, no rashes Musculoskeletal: Neck is supple non tender Extremities: symmetrical, full range of motion Psychiatric: Patient is oriented X 3, there is no agitation Source: Patient, Family - Personal History Current Tetanus/Diphtheria Vaccine: Yes Tetanus Vaccine Date: 2008 - Medical/Surgical History Hx Asthma: No Hx Chronic Respiratory Disease: No Hx Diabetes: No Hx Cardiac Disease: No Hx Renal Disease: No Hx Cirrhosis: No Hx Alcoholism: No Hx HIV/AIDS: No Hx Splenectomy or Spleen Trauma: No Other PMH: "pre-diabetic, paranoid schizophrania, right knee surgery, - Social History Smoking Status: Never smoked Constitutional: Initial Vital Signs Temperature (C) 36.9 C 01/04/17 22:24 Heart Rate 98 01/04/17 22:24 Respiratory Rate 16 01/04/17 22:24 Blood Pressure 111/91 H 01/04/17 22:24 O2 Sat (%) 98 01/04/17 22:24 O2 Delivery Mode Room Air Allergies/Adverse Reactions: Penicillins Allergy (Unknown, Verified 01/04/17 22:27) Rash CATS Allergy (Uncoded 01/04/17 22:27) Itching Home Medications: Medication Instructions Recorded cloZAPine [Clozaril (*)] 200 mg PO HS 07/23/09 Trifluoperazine HCl [Stelazine 2MG 2 mg PO BID 10/02/14 (*)] cloZAPine [Clozaril (*)] 100 mg PO DAILY 10/02/14 Docusate Sodium [Colace 100 MG (*)] 300 mg PO HS 12/29/16 Acetaminophen [Tylenol 325mg (*)] 650 mg PO Q4HRS PRN #0 tab 12/30/16 Polyethylene Glycol 3350 [Miralax 17 gm PO DAILY #0 pkt 12/30/16 17 gm (*)] Polyethylene Glycol 3350 [Miralax 17 gm PO DAILY #1 btl 12/30/16 17 gm (*)] levOFLOXACIN [Levofloxacin] 750 mg PO DAILY #10 tablet 01/05/17 Medical Decision Making Differential Diagnosis: This is a 66-year-old male with schizophrenia who presents brought in by his brother who is his DPOA for nausea and lack of appetite for the last several days after an admission for nausea and vomiting. It seems that the patient is fearful of eating and drinking because he does not want to vomit, thus he does not eat or drink much and his symptoms have progressed. On exam, his abdominal exam is benign. Differential diagnosis includes dehydration, electrolyte disturbance, renal failure. In the emergency room, the patient was given IV fluids and Zofran for his symptoms. Labs were checked and did reveal leukocytosis with elevated lipase. Patient was reexamined and has no abdominal tenderness. I doubt pancreatitis given no new medications, no alcohol use, no history of gallstones. UA did reveal urinary tract infection. I will give him a dose of ceftriaxone here and a prescription for Levaquin for the next 1 week. Urine culture has been ordered. I also have put in a note for our high risk case manager to arrange for follow-up for the patient as he needs additional support services at home it sounds like for help with medications. - Data Points Laboratory Results: Laboratory Results 01/04/17 22:55 01/04/17 22:55 01/04/17 01/04/17 01/04/17 22:55 22:55 00:35 WBC 13.00 10^3/uL H 10^3/uL (3.80-9.50) RBC 4.78 10^6/uL 10^6/uL (4.40-6.38) Hgb 15.2 g/dL g/dL (13.7-17.5) Hct 42.7 % % (40.0-51.0) MCV 89.3 fL fL (81.5-99.8) MCH 31.8 pg pg (27.9-34.1) MCHC 35.6 g/dL g/dL (32.4-36.7) RDW 12.1 % % (11.5-15.2) Plt Count 386 10^3/uL 10^3/uL (150-400) MPV 9.2 fL fL (8.7-11.7) Neut % (Auto) 81.0 % H % (39.3-74.2) Lymph % (Auto) 11.3 % L % (15.0-45.0) [place] % (Auto) 6.0 % % (4.5-13.0) Eos % (Auto) 0.7 % % (0.6-7.6) Baso % (Auto) 0.5 % % (0.3-1.7) Nucleat RBC Rel Count 0.0 % % (0.0-0.2) Absolute Neuts (auto) 10.53 10^3/uL H 10^3/uL (1.70-6.50) Absolute Lymphs (auto) 1.47 10^3/uL 10^3/uL (1.00-3.00) Absolute Monos (auto) 0.78 10^3/uL 10^3/uL (0.30-0.80) Absolute Eos (auto) 0.09 10^3/uL 10^3/uL (0.03-0.40) Absolute Basos (auto) 0.07 10^3/uL 10^3/uL (0.02-0.10) Absolute Nucleated RBC 0.00 10^3/uL 10^3/uL (0-0.01) Immature Gran % 0.5 % % (0.0-1.1) Immature Gran # 0.06 10^3/uL 10^3/uL (0.00-0.10) Sodium 135 mEq/L mEq/L (134-144) Potassium 3.9 mEq/L mEq/L (3.5-5.2) Chloride 103 mEq/L mEq/L (97-110) Carbon Dioxide 19 mEq/l L mEq/l (22-31) Anion Gap 13 mEq/L mEq/L (8-16) BUN 20 mg/dL mg/dL (7-23) Creatinine 1.2 mg/dL mg/dL (0.7-1.3) Estimated GFR > 60 Glucose 102 mg/dL H mg/dL (70-100) Calcium 9.7 mg/dL mg/dL (8.5-10.4) Total Bilirubin 1.3 mg/dL mg/dL (0.1-1.4) Conjugated Bilirubin 0.2 mg/dL mg/dL (0.0-0.5) Unconjugated Bilirubin 1.1 mg/dL mg/dL (0.0-1.1) AST 32 IU/L IU/L (17-59) ALT 38 IU/L IU/L (21-72) Alkaline Phosphatase 91 IU/L IU/L (38-126) Total Protein 7.3 g/dL g/dL (6.3-8.2) Albumin 4.2 g/dL g/dL (3.5-5.0) Lipase 1308.0 IU/L H IU/L (23-300) Urine Color YELLOW Urine Appearance HAZY Urine pH 7.0 (5.0-7.5) Ur Specific [place] 1.010 (1.002-1.030) Urine Protein NEGATIVE (NEGATIVE) Urine Ketones 1+ H (NEGATIVE) Urine Blood 1+ H (NEGATIVE) Urine Nitrate NEGATIVE (NEGATIVE) Urine Bilirubin NEGATIVE (NEGATIVE) Urine Urobilinogen NEGATIVE EU EU (0.2-1.0) Ur Leukocyte Esterase 3+ H (NEGATIVE) Urine RBC 1-3 /hpf /hpf (0-3) Urine WBC 50-182 /hpf H /hpf (0-3) Ur Epithelial Cells TRACE /lpf /lpf (NONE-1+) Urine Bacteria 3+ /hpf H /hpf (NONE SEEN) Hyaline Casts 1-5 /lpf /lpf (0-1) Urine Glucose NEGATIVE (NEGATIVE) Medications Given: Discontinued Medications Sodium Chloride (Ns) 1,000 mls @ 0 mls/hr IV EDNOW ONE; Wide Open PRN Reason: Protocol Stop: 01/04/17 22:34 Last Admin: 01/04/17 22:53 Dose: 1,000 mls Sodium Chloride (Ns) 1,000 mls @ 0 mls/hr IV EDNOW ONE; Wide Open PRN Reason: Protocol Stop: 01/04/17 22:34 Last Admin: 01/04/17 22:54 Dose: 1,000 mls Ceftriaxone Sodium/Dextrose (Rocephin 1 Gm (Premix)) 50 mls @ 100 mls/hr IV EDNOW ONE PRN Reason: Protocol Stop: 01/05/17 01:55 Last Admin: 01/05/17 01:37 Dose: 50 mls Ondansetron HCl (Zofran Odt) 4 mg PO EDNOW ONE Stop: 01/04/17 22:34 Last Admin: 01/04/17 22:54 Dose: 4 mg Departure - Departure Disposition: Home, Routine, Self-Care Clinical Impression: Nausea Urinary tract infection Qualifiers: Urinary tract infection type: site unspecified Hematuria presence: without hematuria Qualified Code(s): N39.0 - Urinary tract infection, site not specified Condition: Good Instructions: Urinary Tract Infection in Men (ED) Referrals: Jhonatan Lyles MD [Primary Care Provider] - As per Instructions Prescriptions: levOFLOXACIN [Levofloxacin] 750 mg PO DAILY #10 tablet
[2017-01-04 22:58] LABS: % IMMATURE GRANULYOCYTES 0.5 % (0.0-1.1); ABSOLUTE IMMATURE GRANULOCYTES 0.06 10^3/uL (0.00-0.10); ADD DIFF? NO; ADD MORPH? NO; ADD SCAN? NO; ATYPICAL LYMPHOCYTE FLAG 10 (0-99); FRAGMENT RBC FLAG 0 (0-99); HEMATOCRIT 42.7 % (40.0-51.0); HEMOGLOBIN 15.2 g/dL (13.7-17.5); LEFT SHIFT FLG 0 (0-99); LIPEMIA HEMOLYSIS FLAG 90 (0-99); MEAN CELL HEMOGLOBIN 31.8 pg (27.9-34.1); MEAN CELL HEMOGLOBIN CONCENTR. 35.6 g/dL (32.4-36.7); MEAN CELL VOLUME 89.3 fL (81.5-99.8); MEAN PLATELET VOLUME 9.2 fL (8.7-11.7); PLATELET CLUMPS FLAG 0 (0-99); PLATELET COUNT 386 10^3/uL (150-400); RED BLOOD CELL COUNT 4.78 10^6/uL (4.40-6.38); RED CELL DISTRIBUTION WIDTH 12.1 % (11.5-15.2)
[2017-01-04 23:14] LABS: ALANINE AMINOTRANSFERASE 38 IU/L (21-72); ALBUMIN 4.2 g/dL (3.5-5.0); ALKALINE PHOSPHATASE 91 IU/L (38-126); ANION GAP 13 mEq/L (8-16); ASPARTATE AMINOTRANSFERASE 32 IU/L (17-59); BILIRUBIN,TOTAL 1.3 mg/dL (0.1-1.4); BILIRUBIN-CONJUGATED 0.2 mg/dL (0.0-0.5); BILIRUBIN-UNCONJUGATED 1.1 mg/dL (0.0-1.1); CALCIUM 9.7 mg/dL (8.5-10.4); CARBON DIOXIDE 19 mEq/l (22-31); CHLORIDE 103 mEq/L (97-110); CREATININE 1.2 mg/dL (0.7-1.3); GLOMERULAR FILTRATION RATE > 60; GLUCOSE 102 mg/dL (70-100); POTASSIUM 3.9 mEq/L (3.5-5.2); SODIUM 135 mEq/L (134-144); TOTAL PROTEIN 7.3 g/dL (6.3-8.2)
[2017-01-05 00:45] LABS: COLOR YELLOW; LEUKOCYTE ESTERASE,URINE 3+ (NEGATIVE); NITRITE,URINE NEGATIVE (NEGATIVE)
[2017-01-05 01:13] LABS: BACTERIA 3+ /hpf (NONE SEEN); WBC,URINE 50-182 /hpf (0-3)
[2017-01-05 02:17] VITALS: BP 121/75; PULSE 75; O2SAT 97
== END 2017-01-05 02:17 | disposition home or self-care (01) ==
DX: N39.0 Urinary tract infection, site not specified (principal); E86.9 Volume depletion, unspecified; B96.89 Other specified bacterial agents as the cause of diseases classified elsewhere
CPT/HCPCS: 96361; 96365; 99284; J0696

== ENCOUNTER 2017-03-17 11:56 | Emergency (ER) | payer OTHER, MEDICAID ==
[2017-03-17 12:04] VITALS: TEMP 97.9
[2017-03-17 12:35] LABS: ADD DIFF? NO; ADD MORPH? NO; ADD SCAN? NO; ATYPICAL LYMPHOCYTE FLAG 10 (0-99); FRAGMENT RBC FLAG 0 (0-99); HEMATOCRIT 40.8 % (40.0-51.0); HEMOGLOBIN 14.8 g/dL (13.7-17.5); LEFT SHIFT FLG 0 (0-99); LIPEMIA HEMOLYSIS FLAG 90 (0-99); MEAN CELL HEMOGLOBIN 32.9 pg (27.9-34.1); MEAN CELL HEMOGLOBIN CONCENTR. 36.3 g/dL (32.4-36.7); MEAN CELL VOLUME 90.7 fL (81.5-99.8); MEAN PLATELET VOLUME 9.3 fL (8.7-11.7); PLATELET CLUMPS FLAG 0 (0-99); PLATELET COUNT 236 10^3/uL (150-400); RED CELL DISTRIBUTION WIDTH 12.4 % (11.5-15.2)
[2017-03-17 12:57] LABS: ANION GAP 13 mEq/L (8-16); CALCIUM 8.9 mg/dL (8.5-10.4); CARBON DIOXIDE 23 mEq/l (22-31); CHLORIDE 104 mEq/L (97-110); GLOMERULAR FILTRATION RATE > 60; GLUCOSE 120 mg/dL (70-100); SODIUM 140 mEq/L (134-144)
[2017-03-17 13:11] LABS: COLOR PALE YELLOW; LEUKOCYTE ESTERASE,URINE NEGATIVE (NEGATIVE); NITRITE,URINE NEGATIVE (NEGATIVE)
--- NOTE | 2017-03-17 13:30 | EDPHY ---
H & P Time Seen by Provider: 03/17/17 13:04 HPI/ROS: CHIEF COMPLAINT: "Kidney pain" HISTORY OF PRESENT ILLNESS: Patient is a 67-year-old male with a history of schizophrenia and previous kidney issues who presents emergency department with "kidney pain. "Patient states that he felt as though he had to go to the bathroom around 809 this morning. Then developed bilateral flank discomfort. This is been mild. It is worsening. He has had no dysuria, frequency or hematuria. No fevers or chills. Patient has had no nausea or vomiting. No abdominal pain. Patient states that he has previously had kidney issues. He feels this was related to his schizophrenia medication. He was told that he had kidney failure. 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 He states his issues have resolved. REVIEW OF SYSTEMS: My complete review of systems is negative except as mentioned in the HPI. Past Medical/Surgical History: Prediabetic, schizophrenia, kidney issues Past surgical history: Includes right knee surgery Social history: The patient does not smoke. Smoking Status: Never smoked Physical Exam: Vitals noted. Afebrile. GENERAL: Well-appearing, in no acute distress, alert. HEENT: Eyes normal to inspection, normal pharynx, no signs of dehydration. NECK: No thyromegaly, no lymphadenopathy, supple. RESPIRATORY: Clear to auscultation bilaterally, no rales, rhonchi or wheezing. CVS: Regular rate and rhythm, no rubs, murmurs, or gallops. ABDOMEN: Soft, nontender, nondistended, no organomegaly. BACK: Normal to inspection, no CVA tenderness. SKIN: Eczema type rash on his medial hands bilaterally. Normal color, warm, dry. No pallor. EXTREMITIES: No pedal edema, no calf tenderness, no Homans sign or cords, no joint swelling. NEURO/PSYCH: Alert and oriented, normal mood and affect, normal motor sensory exam. Constitutional: Initial Vital Signs Temperature (C) 36.6 C 03/17/17 12:01 Heart Rate 95 03/17/17 12:01 Respiratory Rate 20 03/17/17 12:01 Blood Pressure 136/67 H 03/17/17 12:01 O2 Sat (%) 95 03/17/17 12:01 O2 Delivery Mode Room Air Allergies/Adverse Reactions: Penicillins Allergy (Unknown, Verified 03/17/17 12:00) Rash CATS Allergy (Uncoded 01/04/17 22:27) Itching Home Medications: Medication Instructions Recorded cloZAPine [Clozaril (*)] 200 mg PO HS 07/23/09 Trifluoperazine HCl [Stelazine 2MG 2 mg PO BID 10/02/14 (*)] cloZAPine [Clozaril (*)] 100 mg PO DAILY 10/02/14 Docusate Sodium [Colace 100 MG (*)] 300 mg PO HS 12/29/16 Acetaminophen [Tylenol 325mg (*)] 650 mg PO Q4HRS PRN #0 tab 12/30/16 Polyethylene Glycol 3350 [Miralax 17 gm PO DAILY #0 pkt 12/30/16 17 gm (*)] Polyethylene Glycol 3350 [Miralax 17 gm PO DAILY #1 btl 12/30/16 17 gm (*)] Medical Decision Making ED Course/Re-evaluation: In the emergency department I discussed possible etiologies. He consented to laboratory studies. CBC, chemistry and UA were normal. I discussed the results with the patient. He was feeling much better. I do not feel he needs imaging prior to leaving. He was given warnings prior to leaving. He will return with worsening symptoms. Differential Diagnosis: My differential includes but is not limited to urinary tract infection, pyelonephritis, kidney stone, renal disease, renal failure - Data Points Laboratory Results: Laboratory Results 03/17/17 12:30 03/17/17 12:30 03/17/17 03/17/17 03/17/17 12:30 12:30 12:15 WBC 5.56 10^3/uL 10^3/uL (3.80-9.50) RBC 4.50 10^6/uL 10^6/uL (4.40-6.38) Hgb 14.8 g/dL g/dL (13.7-17.5) Hct 40.8 % % (40.0-51.0) MCV 90.7 fL fL (81.5-99.8) MCH 32.9 pg pg (27.9-34.1) MCHC 36.3 g/dL g/dL (32.4-36.7) RDW 12.4 % % (11.5-15.2) Plt Count 236 10^3/uL 10^3/uL (150-400) MPV 9.3 fL fL (8.7-11.7) Neut % (Auto) 66.6 % % (39.3-74.2) Lymph % (Auto) 16.7 % % (15.0-45.0) [place] % (Auto) 9.4 % % (4.5-13.0) Eos % (Auto) 5.9 % % (0.6-7.6) Baso % (Auto) 1.4 % % (0.3-1.7) Nucleat RBC Rel Count 0.0 % % (0.0-0.2) Absolute Neuts (auto) 3.70 10^3/uL 10^3/uL (1.70-6.50) Absolute Lymphs (auto) 0.93 10^3/uL L 10^3/uL (1.00-3.00) Absolute Monos (auto) 0.52 10^3/uL 10^3/uL (0.30-0.80) Absolute Eos (auto) 0.33 10^3/uL 10^3/uL (0.03-0.40) Absolute Basos (auto) 0.08 10^3/uL 10^3/uL (0.02-0.10) Absolute Nucleated RBC 0.00 10^3/uL 10^3/uL (0-0.01) Immature Gran % 0.0 % % (0.0-1.1) Immature Gran # 0.00 10^3/uL 10^3/uL (0.00-0.10) Sodium 140 mEq/L mEq/L (134-144) Potassium 4.0 mEq/L mEq/L (3.5-5.2) Chloride 104 mEq/L mEq/L (97-110) Carbon Dioxide 23 mEq/l mEq/l (22-31) Anion Gap 13 mEq/L mEq/L (8-16) BUN 20 mg/dL mg/dL (7-23) Creatinine 1.0 mg/dL mg/dL (0.7-1.3) Estimated GFR > 60 Glucose 120 mg/dL H mg/dL (70-100) Calcium 8.9 mg/dL mg/dL (8.5-10.4) Urine Color PALE YELLOW Urine Appearance CLEAR Urine pH 6.0 (5.0-7.5) Ur Specific [place] 1.009 (1.002-1.030) Urine Protein NEGATIVE (NEGATIVE) Urine Ketones NEGATIVE (NEGATIVE) Urine Blood NEGATIVE (NEGATIVE) Urine Nitrate NEGATIVE (NEGATIVE) Urine Bilirubin NEGATIVE (NEGATIVE) Urine Urobilinogen NEGATIVE EU EU (0.2-1.0) Ur Leukocyte Esterase NEGATIVE (NEGATIVE) Urine RBC 1-3 /hpf /hpf (0-3) Urine WBC 1-3 /hpf /hpf (0-3) Ur Epithelial Cells Not Reported Urine Glucose NEGATIVE (NEGATIVE) Departure - Departure Disposition: Home, Routine, Self-Care Clinical Impression: Bilateral flank pain Condition: Good Instructions: Flank Pain (ED) Additional Instructions: Return with increasing pain, fever, pain with urination, bloody urination or any other concerns. Your laboratory studies were normal Referrals: Jhonatan Lyles MD [Primary Care Provider] - 5-7 days, if not improved
[2017-03-17 14:44] VITALS: BP 128/74; PULSE 86; RESP 16; O2SAT 94
== END 2017-03-17 14:46 | disposition home or self-care (01) ==
DX: R10.9 Unspecified abdominal pain (principal)

== ENCOUNTER 2017-10-10 07:01 | Emergency (ER) | payer OTHER, MEDICAID ==
[2017-10-10 07:09] VITALS: BP 132/72
[2017-10-10] MEDS ORDERED: OXYMETAZOLINE 30 ML NASAL SPRAY EACHNARE ONE (07:21)
[2017-10-10] MEDS ORDERED: diphenhydrAMINE 25 MG CAP PO ONE (07:21)
--- NOTE | 2017-10-10 07:24 | EDPHY ---
H & P Stated Complaint: SOB, nasal congestion x 3 hours "can they get the snot out of my nose?" Time Seen by Provider: 10/10/17 07:16 HPI/ROS: CHIEF COMPLAINT: Sinus congestion HISTORY OF PRESENT ILLNESS: The patient is a 67-year-old man with a history of paranoid schizophrenia and cognitive delay. His brother is with him and is very reasonable. The patient felt well until about 3 or 4 hr ago when he woke up with sinus congestion. He has not had a fever. No difficulty breathing or swallowing. He has here requesting that we "get the snot out of his nose". No fevers. REVIEW OF SYSTEMS: Constitutional: denies: chills, fever, recent illness, recent injury EENTM: See HPI denies: blurred vision, double vision Respiratory: denies: cough, shortness of breath Cardiac: denies: chest pain, irregular heart rate, lightheadedness, palpitations Gastrointestinal/Abdominal: denies: abdominal pain, diarrhea, nausea, vomiting, blood streaked stools Genitourinary: denies: dysuria, frequency, hematuria, pain Musculoskeletal: denies: joint pain, muscle pain Skin: denies: lesions, rash, jaundice, bruising Neurological: denies: headache, numbness, paresthesia, tingling, dizziness, weakness Hematologic/Lymphatic: denies: blood clots, easy bleeding, easy bruising Immunologic/allergic: denies: HIV/AIDS, transplant EXAM: GENERAL: Well-appearing, well-nourished and in no acute distress. HEAD: Atraumatic, normocephalic. EYES: Pupils equal round and reactive to light, extraocular movements intact, sclera anicteric, conjunctiva are normal. ENT: TMs normal, sinus congestion, no tenderness, oropharynx clear without exudates. Moist mucous membranes. NECK: Normal range of motion, supple without lymphadenopathy or JVD. LUNGS: Breath sounds clear to auscultation bilaterally and equal. No wheezes rales or rhonchi. HEART: Regular rate and rhythm without murmurs, rubs or gallops. ABDOMEN: Soft, nontender, normoactive bowel sounds. No guarding, no rebound. No masses appreciated. BACK: No CVA tenderness, no spinal tenderness, step-offs or deformities EXTREMITIES: Normal range of motion, no pitting or edema. No clubbing or cyanosis. NEUROLOGICAL: Cranial nerves II through XII grossly intact. Normal speech, normal gait. 5/5 strength, normal movement in all extremities, normal sensation PSYCH: Normal mood, normal affect. SKIN: Warm, dry, normal turgor, no visible rashes or lesions. Source: Patient, Family Exam Limitations: No limitations - Personal History Tetanus Vaccine Date: 2008 - Medical/Surgical History Hx Asthma: No Hx Chronic Respiratory Disease: No Hx Diabetes: No Hx Cardiac Disease: No Hx Renal Disease: No Hx Cirrhosis: No Hx Alcoholism: No Hx HIV/AIDS: No Hx Splenectomy or Spleen Trauma: No Other PMH: paranoid schizophrania, right knee surgery, - Family History Significant Family History: No pertinent family hx - Social History Smoking Status: Never smoked Alcohol Use: Sober Drug Use: None Constitutional: Initial Vital Signs Temperature (C) 37.0 C 10/10/17 07:07 Heart Rate 89 10/10/17 07:07 Respiratory Rate 16 10/10/17 07:07 Blood Pressure 132/72 H 10/10/17 07:07 O2 Sat (%) 94 10/10/17 07:07 O2 Delivery Mode Room Air Allergies/Adverse Reactions: Penicillins Allergy (Unknown, Verified 03/17/17 12:00) Rash CATS Allergy (Uncoded 01/04/17 22:27) Itching Home Medications: Medication Instructions Recorded cloZAPine [Clozaril (*)] 200 mg PO HS 07/23/09 Trifluoperazine HCl [Stelazine 2MG 2 mg PO BID 10/02/14 (*)] cloZAPine [Clozaril (*)] 100 mg PO DAILY 10/02/14 Medical Decision Making ED Course/Re-evaluation: Patient has mild sinus congestion. We discussed options. He and his brother concerned about side effects considering his history of schizophrenia and psychotropic medications. We agreed to try Afrin and Benadryl but they will watch for side effects to see if he should continue taking these. They declined further workup or testing at this time. Brother states that he has suffered from allergies all of his life in his used sinus congestion but the patient has not. The patient simply encountered something unusual for him today and wished to be evaluated. They feel comfortable going home at this time. Differential Diagnosis: Partial list of the Differential diagnosis considered include but were not limited to; sinusitis, allergic reaction, upper respiratory tract infection, anxiety and although unlikely based on the history and physical exam, I also considered abscess, tumor, airway compromise. - Data Points Medications Given: Discontinued Medications Diphenhydramine HCl (Benadryl) 50 mg PO EDNOW ONE Stop: 10/10/17 07:22 Last Admin: 10/10/17 07:33 Dose: 50 mg Oxymetazoline HCl (Afrin Nasal [place]) 2 sprays EACHNARE EDNOW ONE Stop: 10/10/17 07:22 Last Admin: 10/10/17 07:34 Dose: 2 spray Departure - Departure Disposition: Home, Routine, Self-Care Clinical Impression: Sinus congestion Condition: Fair Instructions: Oxymetazoline (Into the nose) Additional Instructions: Continue to take Benadryl as needed for an antihistamine but monitor closely for side effects such as agitation, anxiety or somnolecent Referrals: Jhonatan Lyles MD [Primary Care Provider] - As per Instructions
== END 2017-10-10 07:37 | disposition home or self-care (01) ==
DX: R09.81 Nasal congestion (principal)

== ENCOUNTER → 2017-10-23 | Outpatient (CLI) | payer OTHER, MEDICAID | LOC: BMCIMAGING 14:05 | PROVIDERS: ATTEND Internal Medicine | DX: M54.9 Dorsalgia, unspecified (principal); M54.2 Cervicalgia ==

== ENCOUNTER 2017-10-24 17:43 | Emergency (ER) | payer OTHER, MEDICAID ==
[2017-10-24] MEDS ORDERED: PEG 3350/NA SULF,BICARB,CL/KCL (GAVILYTE-G) 4000 ML BTL PO ONE (18:03)
--- NOTE | 2017-10-24 18:04 | EDPHY ---
H & P Stated Complaint: Constipated x 4 days; thinks it's r/t clozaril Time Seen by Provider: 10/24/17 17:56 HPI/ROS: CHIEF COMPLAINT: Constipation HISTORY OF PRESENT ILLNESS: The patient is a 67-year-old man with history of schizophrenia who is here with his brother who is his vba developer. The patient takes Clozaril which makes him feel constipated frequently. He typically uses MiraLax along with it but has forgotten recently. He denies having abdominal pain. He states his last bowel movement was on Thursday and was very large. No vomiting. No fever. No history of abdominal surgeries. REVIEW OF SYSTEMS: Constitutional: denies: chills, fever, recent illness, recent injury EENTM: denies: blurred vision, double vision, nose congestion Respiratory: denies: cough, shortness of breath Cardiac: denies: chest pain, irregular heart rate, lightheadedness, palpitations Gastrointestinal/Abdominal: See HPI denies: abdominal pain, diarrhea, nausea, vomiting, blood streaked stools Genitourinary: denies: dysuria, frequency, hematuria, pain Musculoskeletal: denies: joint pain, muscle pain Skin: denies: lesions, rash, jaundice, bruising Neurological: denies: headache, numbness, paresthesia, tingling, dizziness, weakness Hematologic/Lymphatic: denies: blood clots, easy bleeding, easy bruising Immunologic/allergic: denies: HIV/AIDS, transplant EXAM: GENERAL: Well-appearing, well-nourished and in no acute distress. HEAD: Atraumatic, normocephalic. EYES: Pupils equal round and reactive to light, extraocular movements intact, sclera anicteric, conjunctiva are normal. ENT: TMs normal, nares patent, oropharynx clear without exudates. Moist mucous membranes. NECK: Normal range of motion, supple without lymphadenopathy or JVD. LUNGS: Breath sounds clear to auscultation bilaterally and equal. No wheezes rales or rhonchi. HEART: Regular rate and rhythm without murmurs, rubs or gallops. ABDOMEN: Soft, nontender, normoactive bowel sounds. No guarding, no rebound. No masses appreciated. BACK: No CVA tenderness, no spinal tenderness, step-offs or deformities EXTREMITIES: Normal range of motion, no pitting or edema. No clubbing or cyanosis. NEUROLOGICAL: Cranial nerves II through XII grossly intact. Normal speech, normal gait. 5/5 strength, normal movement in all extremities, normal sensation PSYCH: Normal mood, normal affect. SKIN: Warm, dry, normal turgor, no visible rashes or lesions. Source: Patient Exam Limitations: No limitations - Personal History Current Tetanus Diphtheria and Acellular Pertussis (TDAP): Unsure Tetanus Vaccine Date: 2008 - Medical/Surgical History Hx Asthma: No Hx Chronic Respiratory Disease: No Hx Diabetes: No Hx Cardiac Disease: No Hx Renal Disease: No Hx Cirrhosis: No Hx Alcoholism: No Hx HIV/AIDS: No Hx Splenectomy or Spleen Trauma: No Other PMH: paranoid schizophrania, right knee surgery - Family History Significant Family History: No pertinent family hx - Social History Smoking Status: Former smoker Alcohol Use: Sober Drug Use: None Constitutional: Initial Vital Signs Temperature (C) 36.7 C 10/24/17 17:45 Heart Rate 88 10/24/17 17:45 Respiratory Rate 18 10/24/17 17:45 Blood Pressure 145/80 H 10/24/17 17:45 O2 Sat (%) 97 10/24/17 17:45 O2 Delivery Mode Room Air Allergies/Adverse Reactions: Penicillins Allergy (Unknown, Verified 10/24/17 17:44) Rash CATS Allergy (Uncoded 01/04/17 22:27) Itching Home Medications: Medication Instructions Recorded cloZAPine [Clozaril (*)] 200 mg PO HS 07/23/09 Trifluoperazine HCl [Stelazine 2MG 2 mg PO BID 10/02/14 (*)] cloZAPine [Clozaril (*)] 100 mg PO DAILY 10/02/14 Medical Decision Making ED Course/Re-evaluation: Patient's abdominal exam is completely benign. He denies having pain or vomiting. He typically takes MiraLax but has for got recently. I will supply him with a bottle of GoLYTELY to begin taking once he gets home and instructed him how to take it and titrated. His brother and vba developer agrees with this plan. They declined further workup or testing at this time. Differential Diagnosis: Partial list of the Differential diagnosis considered include but were not limited to; constipation, obstruction and although unlikely based on the history and physical exam, I also considered volvulus, ischemia, appendicitis, biliary disease. - Data Points Medications Given: Discontinued Medications Polyethylene Glycol/Electrolytes (Gavilyte - G) 4,000 ml PO ONCE ONE Stop: 10/24/17 18:04 Last Admin: 10/24/17 18:23 Dose: 4,000 ml Departure - Departure Disposition: Home, Routine, Self-Care Clinical Impression: Constipation Qualifiers: Constipation type: unspecified constipation type Qualified Code(s): K59.00 - Constipation, unspecified Condition: Fair Instructions: Constipation (ED) Additional Instructions: Drink a cup full of GoLYTELY every half an hour until you have satisfactory results then you may stop or the decrease as needed. May resume if needed in the future. Referrals: Jhonatan Lyles MD [Primary Care Provider] - As per Instructions
[2017-10-24 18:30] VITALS: BP 109/85
== END 2017-10-24 18:28 | disposition home or self-care (01) ==
DX: K59.00 Constipation, unspecified (principal); Z87.891 Personal history of nicotine dependence

== ENCOUNTER 2017-12-02 15:22 | Emergency (ER) | payer OTHER, MEDICAID ==
[2017-12-02] MEDS ORDERED: ASPIRIN 81 MG CHEWABLE TAB PO ONE (15:50)
[2017-12-02] MEDS ORDERED: NS 500 ML IV ONE (15:50)
--- NOTE | 2017-12-02 15:50 | CPEKG ---
Heart Rate: 82 RR Interval: 732 P-R Interval: 160 QRSD Interval: 86 QT Interval: 372 QTC Interval: 435 P Coolidge: 75 QRS Coolidge: 68 T Wave Coolidge: 53 EKG Severity - NORMAL ECG - EKG Impression: SINUS RHYTHM Electronically Signed By: Modesto Khan 02-Dec-2017 22:03:38
[2017-12-02 16:12] LABS: PLATELET COUNT 261 10^3/uL (150-400)
[2017-12-02 16:20] LABS: INR 1.05 (0.83-1.16); PROTIME(PATIENT) 13.9 SEC (12.0-15.0)
--- NOTE | 2017-12-02 16:45 | EDPHY ---
H & P Time Seen by Provider: 12/02/17 15:35 HPI/ROS: HPI Chest discomfort. 67-year-old male by ambulance. This patient reports that at 1:30 p.m. Today he was walking out in the hot sun. He reports that he return to his apartment he felt "funny". He describes this as a feeling of chest discomfort described as tightness. He reports that he then called 911 and by the time EMS arrived at his apartment this discomfort had resolved. No associated shortness of breath. He denies developing this while exerting himself in the heat while walking. He has no prior history of coronary artery disease. States that he does have a history of pre diabetes. Otherwise denies other risk factors. He is not obese , no history of hypertension, no history of hyperlipidemia, no significant family history. He does not smoke. ROS: Constitutional: No fever, no chills. As above. Eyes: No discharge. No changes in vision. ENT: No sore throat. No nasal congestion or rhinorrhea. Respiratory: No cough. No shortness of breath. Cardiac: As above, no palpitations. Gastrointestinal: No abdominal pain, no vomiting, no diarrhea. Genitourinary: No hematuria. No dysuria or increased frequency with urination. Musculoskeletal: No back pain. No neck pain. No myalgias or arthralgias. Skin: No rashes. Neurological: No headache. No focal weakness or altered sensation. Past medical history: Paranoid schizophrenia, anxiety, right knee surgery. Social history: Currently lives by himself. Has an apartment. Nonsmoker. No alcohol. Physical Exam: General Appearance: Alert, pleasant, no distress. This patient is responding to questions appropriately and in full sentences. This patient appears well- hydrated and well-nourished. Eyes: Pupils equal and round no pallor or injection. No lid edema, erythema or injection. Respiratory: There are no retractions, lungs are clear to auscultation with good air movement bilaterally. Cardiovascular: Regular rate and rhythm. No murmur. Gastrointestinal: Abdomen is soft and nontender, no masses, bowel sounds normal. No focal tenderness at McBurney's point. No Norris sign. Neurological: Motor sensory function is grossly intact. Cranial nerves are normal. Gait is normal. Skin: Warm and dry, no rashes. Musculoskeletal: Neck is supple and nontender. Extremities are symmetrical. All joints range without pain or impingement. Psychiatric: No agitation. No depression. Database: EKG: EKG time is 3:48 p.m.; EKG shows a narrow complex normal sinus rhythm with a ventricular rate of 82. The VT, QRS, QT intervals are within normal limits. There are no ST-T wave changes indicative of ischemic or injury pattern. No evidence of right heart strain. Interpreted by me. Imaging: Chest x-ray AP portable; the cardiac mediastinal silhouette is unremarkable. No evidence of infiltrate or pneumothorax. No acute cardiopulmonary disease process noted. Interpreted by me. Procedures: Emergency department course: Vital signs reviewed and are normal. The patient was given 324 mg of chewed aspirin. No chest discomfort or shortness of breath in the emergency department. EKG obtained and reviewed by myself. 4:40 p.m., patient re-evaluated. Resting comfortably at this time. Denies any symptoms. No chest pain. Results of his blood work in 1st troponin, EKG discussed with him. I discussed admission for observation. He does not want to be admitted. He does agree to staying for a repeat 3 hr troponin periods be done at 1900 hr. 8:00 p.m., patient re-evaluated. 2nd troponin is negative. No chest pain or other complaints at this time. I again discussed admission with him. He is declining admission. The patient competently engages in shared decision making. They demonstrate capacitance to make decisions. I will have him follow up with Cardiology for re-evaluation and a stressed within the next 2-3 days. He is in agreement with this plan. Return to emergency department precautions were thoroughly reviewed with him. All of his questions were answered. He was discharged in good condition. Differential Diagnosis: The differential diagnosis on this patient includes but is not limited to anxiety reaction. Acute coronary syndrome, pulmonary embolism, aortic dissection, myocarditis, pericarditis, pneumonia, pneumothorax unlikely. This represents a partial list of diagnoses considered. These considerations are based on history, physical exam, past history, reassessment and diagnostic testing. Smoking Status: Former smoker Constitutional: Initial Vital Signs Temperature (C) 37.0 C 12/02/17 15:26 Heart Rate 88 12/02/17 15:26 Respiratory Rate 18 12/02/17 15:26 Blood Pressure 119/63 12/02/17 15:26 O2 Sat (%) 93 12/02/17 15:26 O2 Delivery Mode Room Air Allergies/Adverse Reactions: Penicillins Allergy (Unknown, Verified 10/24/17 17:44) Rash CATS Allergy (Uncoded 01/04/17 22:27) Itching Home Medications: Medication Instructions Recorded cloZAPine [Clozaril (*)] 200 mg PO HS 07/23/09 Trifluoperazine HCl [Stelazine 2MG 2 mg PO BID 10/02/14 (*)] cloZAPine [Clozaril (*)] 100 mg PO DAILY 10/02/14 Medical Decision Making - Data Points Laboratory Results: Laboratory Results 12/02/17 16:05 12/02/17 16:05 Medications Given: Discontinued Medications Aspirin (Aspirin) 324 mg PO EDNOW ONE Stop: 12/02/17 15:51 Last Admin: 12/02/17 16:05 Dose: 324 mg Sodium Chloride (Ns) 500 mls @ 1,000 mls/hr IV EDNOW ONE PRN Reason: Protocol Stop: 12/02/17 16:19 Last Admin: 12/02/17 16:05 Dose: 500 mls Point of Care Test Results: Chemistry 12/02/17 12/02/17 19:33 15:58 POC Troponin I 0.01 ng/mL ng/mL 0.01 ng/mL ng/mL (0.00-0.08) (0.00-0.08) Departure - Departure Disposition: Home, Routine, Self-Care Clinical Impression: Chest discomfort Condition: Good Instructions: Chest Pain (ED) Additional Instructions: Read and follow provided instructions. Follow-up with Cardiology, Dr. Mc Walker, or 1 of his partners at [facility] within the next 2-3 days for re-evaluation and a stress test as discussed. Avoid strenuous activity until you have been seen and cleared by Cardiology. Take 81 mg of chewed aspirin daily. Return to the emergency department for return of chest pain, shortness of breath or other serious concerns. Referrals: Ramo Walker MD [Medical Doctor] - As per Instructions Jhonatan Lyles MD [Primary Care Provider] - As per Instructions
[2017-12-02 20:49] VITALS: BP 134/79
== END 2017-12-02 21:07 | disposition home or self-care (01) ==
LOC: EDBD → EDUNIT#
DX: R07.89 Other chest pain (principal); E86.9 Volume depletion, unspecified; Z87.891 Personal history of nicotine dependence
CPT/HCPCS: 84484-PO

== ENCOUNTER → 2017-12-18 | Outpatient (CLI) | payer OTHER, MEDICAID | LOC: BHFA 13:30 | PROVIDERS: ATTEND Internal Medicine Cardiovascular Disease | DX: R07.9 Chest pain, unspecified (principal); R94.31 Abnormal electrocardiogram [ECG] [EKG] ==

== ENCOUNTER → 2018-01-11 | Outpatient (CLI) | payer OTHER, MEDICAID | DX: R07.9 Chest pain, unspecified (principal) | CPT/HCPCS: 78452; 93017; A9500; J2785 ==

== ENCOUNTER → 2018-01-22 | Outpatient (CLI) | payer OTHER, MEDICAID | LOC: BHFA 11:30 | PROVIDERS: ATTEND Internal Medicine Cardiovascular Disease | DX: R07.9 Chest pain, unspecified (principal); R94.31 Abnormal electrocardiogram [ECG] [EKG] ==

== ENCOUNTER 2018-05-26 22:11 | Emergency (ER) | payer OTHER, MEDICAID ==
--- NOTE | 2018-05-26 22:34 | EDPHY ---
H & P Stated Complaint: constipation x4 days Time Seen by Provider: 05/26/18 22:33 HPI/ROS: HPI: This is a 68-year-old male who presents with Chief Complaint: Constipation x4 days Location: GI Quality: No bowel movement Duration: in 4 days Signs and Symptoms: no fever, no nausea, no vomiting, no hematemesis, no blood in stool, no abdominal bloating, no diarrhea, no back pain, no urinary symptoms , no testicular/groin pain, no indigestion, no chest pain, no shortness of breath Timing: Acute on chronic Severity: Moderate Context: Patient presents accompanied by his legal guardian with complaints of not being able to have a bowel movement in the last 3-4 days. Patient reports that he has taken prune juice this afternoon without any relief of his symptoms. Patient reports that his schizophrenia medications cause constipation. Patient reports that he still eating 3 meals per day without any difficulty. Denies fever, nausea, vomiting, diarrhea, abdominal pain. Reports that he is passing flatus from below. Modifying Factors: Prune juice no relief Comment: ROS: A comprehensive 10 system review of systems is otherwise negative aside from elements mentioned in the history of present illness. MEDICAL/SURGICAL/SOCIAL HISTORY: Medical history: Paranoid schizophrenia Surgical history: Right knee surgery Social history: Denies alcohol, drug, tobacco use. Family history noncontributory. CONSTITUTIONAL: Nontoxic-appearing, talkative elderly white male, awake and alert, no obvious distress HEENT: Atraumatic and normocephalic, PERRL, EOMI. Nares patent; no rhinorrhea; no nasal mucosal edema. Tympanic membranes clear. Oropharynx clear, no exudate and moist pink mucosa. Airway patent. No lymphadenopathy. No meningismus. Cardiovascular: Normal S1/S2, regular rate, regular rhythm, without murmur rub or gallop. PULMONARY/CHEST: Symmetrical and nontender. Clear to auscultation bilaterally. Good air movement. No accessory muscle usage. ABDOMEN: Soft, nondistended, nontender, no rebound, no guarding, no peritoneal signs, no masses or organomegaly. No CVAT. Bowel sounds hypoactive x4 quadrants. EXTREMITIES: 2/2 pulses, strength 5/5, no deformities, no clubbing, no cyanosis or edema. NEUROLOGICAL: no focal neuro deficits. GCS 15. SKIN: Warm and dry, no erythema. no rash. Good capillary refill. Source: Patient Exam Limitations: No limitations - Personal History Current Tetanus/Diphtheria Vaccine: Yes Tetanus Vaccine Date: 2008 - Medical/Surgical History Hx Asthma: No Hx Chronic Respiratory Disease: No Hx Diabetes: No Hx Cardiac Disease: No Hx Renal Disease: No Hx Cirrhosis: No Hx Alcoholism: No Hx HIV/AIDS: No Hx Splenectomy or Spleen Trauma: No Other PMH: paranoid schizophrenia, right knee surgery, - Social History Smoking Status: Former smoker Constitutional: Initial Vital Signs Temperature (C) 37.3 C 05/26/18 22:14 Heart Rate 94 05/26/18 22:14 Respiratory Rate 18 05/26/18 22:14 Blood Pressure 115/72 05/26/18 22:14 O2 Sat (%) 95 05/26/18 22:14 O2 Delivery Mode Room Air Allergies/Adverse Reactions: Penicillins Allergy (Unknown, Verified 05/26/18 22:16) Rash CATS Allergy (Uncoded 01/04/17 22:27) Itching Home Medications: Medication Instructions Recorded cloZAPine [Clozaril (*)] 200 mg PO HS 07/23/09 Trifluoperazine HCl [Stelazine 2MG 2 mg PO BID 10/02/14 (*)] cloZAPine [Clozaril (*)] 100 mg PO DAILY 10/02/14 Lexapro 05/26/18 Medical Decision Making - Diagnostics Imaging Results: Imaging Impressions Abdomen X-Ray 05/26/18 22:44 Impression: Moderate constipation. ED Course/Re-evaluation: Vital signs reviewed and all upon arrival. Abdomen is soft and nontender doubt appendicitis, gallbladder disease, obstruction, diverticulitis, perforation. Abdominal x-ray two view ordered shows constipation but no signs of obstruction Will advised MiraLax and give magnesium citrate This patient was seen under the supervision of my secondary supervising physician. I evaluated care for this patient independently. Discussed this patient with Dr. Carlton who did not see the patient. Differential Diagnosis: Differential diagnosis includes but is not limited to constipation, ileus, obstipation, small-bowel obstruction. Departure - Departure Disposition: Home, Routine, Self-Care Clinical Impression: Constipation by delayed colonic transit Condition: Good Instructions: Polyethylene Glycol 3350 (By mouth), Magnesium Citrate (By mouth) , Constipation (ED) Additional Instructions: Consume a minimum of 8-10 glasses of water or electrolyte fluid replacement drinks that include Gatorade, Powerade, Pedialyte. Eat a bland diet for the next 48 hours and then slowly advance as tolerated. Take MiraLax daily for the next 3 days and then daily as needed for constipation. Take magnesium citrate 150 ml and then if no bowel movement in 4-6 hours, take the other 150 mL. Return to the Emergency Room if symptoms do not resolve in the next 48-72 hours , you spike a fever > 102 F, or experience intractable abdominal pain/nausea/ vomiting. Referrals: Jhonatan Lyles MD [Primary Care Provider] - As per Instructions
[2018-05-26] MEDS ORDERED: MAGNESIUM CITRATE 300 ML BOTTLE PO ONE (23:05)
[2018-05-26 23:46] VITALS: BP 115/71
== END 2018-05-26 23:46 | disposition home or self-care (01) ==
DX: K59.01 Slow transit constipation (principal)

== ENCOUNTER 2018-06-02 16:55 | Emergency (ER) | payer OTHER, MEDICAID ==
[2018-06-02 16:59] VITALS: BP 138/85
--- NOTE | 2018-06-02 17:03 | EDPHY ---
H & P Stated Complaint: Constipation Time Seen by Provider: 06/02/18 17:03 - Personal History Current Tetanus Diphtheria and Acellular Pertussis (TDAP): Yes Tetanus Vaccine Date: 2008 - Medical/Surgical History Hx Asthma: No Hx Chronic Respiratory Disease: No Hx Diabetes: No Hx Cardiac Disease: No Hx Renal Disease: No Hx Cirrhosis: No Hx Alcoholism: No Hx HIV/AIDS: No Hx Splenectomy or Spleen Trauma: No Other PMH: paranoid schizophrenia, right knee surgery, - Social History Smoking Status: Former smoker Constitutional: Initial Vital Signs Temperature (C) 36.9 C 06/02/18 16:57 Heart Rate 95 06/02/18 16:57 Respiratory Rate 18 06/02/18 16:57 Blood Pressure 138/85 H 06/02/18 16:57 O2 Sat (%) 94 06/02/18 16:57 O2 Delivery Mode Room Air Allergies/Adverse Reactions: Penicillins Allergy (Unknown, Verified 06/02/18 16:57) Rash CATS Allergy (Uncoded 06/02/18 16:57) Itching Home Medications: Medication Instructions Recorded cloZAPine [Clozaril (*)] 200 mg PO HS 07/23/09 Trifluoperazine HCl [Stelazine 2MG 2 mg PO BID 10/02/14 (*)] cloZAPine [Clozaril (*)] 100 mg PO DAILY 10/02/14 Lexapro 05/26/18 Medical Decision Making ED Course/Re-evaluation: CHIEF COMPLAINT: Constipation HISTORY OF PRESENT ILLNESS: The patient is a 68-year-old male with history of schizophrenia who is here with his family. The patient takes Clozaril which makes him feel constipated frequently. He has tried MiraLax without relief; one capful daily. He reports his last bowel movement was Thursday morning. He denies having abdominal pain. No vomiting. No fever. No history of abdominal surgeries. He has no further complaints. REVIEW OF SYSTEMS: A comprehensive 10 system review of systems is otherwise negative aside from elements mentioned in the history of present illness and medical decision making. PHYSICAL EXAM: HR, BP, O2 Sat, RR. Temp noted General Appearance: Alert, well hydrated, appropriate, and non-toxic appearing. Head: Atraumatic without scalp tenderness or obvious injury Neck: Supple, nontender, no lymphadenopathy. Respiratory: No retractions, no distress, no wheezes, and no accessory muscle use. Lungs are clear to auscultation bilaterally. Cardiovascular: Regular rate and rhythm. Good capillary refill all extremities. Gastrointestinal: Abdomen is soft, nontender, non-distended, no masses, no rebound, no guarding, no peritoneal signs. Musculoskeletal: Normal active ROM of all extremities, atraumatic. Neurological: Alert, appropriate, and interactive. Nonfocal neuro exam. Skin: No rashes, good turgor, no nodules on palpation. Past medical history: Paranoid schizophrenia Past surgical history: Right knee surgery Family history: Noncontributory. Social history: Family at bedside. His brother is his message clerk. Denies alcohol , drug, tobacco use. DIFFERENTIAL DIAGNOSIS: Includes but not limited to functional causes (dietary factors, motility disturbance), structural abnormalities, metabolic conditions, neurogenic conditions, psychogenic conditions, and medication effect. MEDICAL DECISION MAKIN-year-old male with history of schizophrenia who takes Clozaril with the result of chronic constipation. He otherwise feels well today. Abdomen is soft and nontender on exam. We discussed an updated medication regimen for his constipation. He will try MiraLax, 1 cap 3-5 times daily. He will supplement with this with Metamucil once daily as directed on the packaging. Today, he will try magnesium citrate at home for relief of his acute constipation. Plan to discharge the patient home in good condition. Follow up and return precautions discussed with him and his brother. They are comfortable with this plan. Departure - Departure Disposition: Home, Routine, Self-Care Clinical Impression: Constipation Qualifiers: Constipation type: other constipation type Qualified Code(s): K59.09 - Other constipation Condition: Good Instructions: Polyethylene Glycol 3350 (By mouth), Constipation (ED), High Fiber Diet (ED) Additional Instructions: You should take 1 capful (1 scoop) of MiraLax 3-5 times per day. You may also take Metamucil once daily as directed on the bottle. Take magnesium citrate today when you get home as directed. Return to the emergency department for fever, vomiting, severe abdominal pain, or other worsening of condition. Referrals: Jhonatan Lyles MD [Primary Care Provider] - As per Instructions Report Scribed for: Fernie Jean-Baptiste Report Scribed by: Shadia Land Date of Report: 06/02/18 Time of Report: 17:12
[2018-06-02] MEDS ORDERED: MAGNESIUM CITRATE 300 ML BOTTLE ONE (17:09)
== END 2018-06-02 17:18 | disposition home or self-care (01) ==
DX: K59.09 Other constipation (principal); F20.9 Schizophrenia, unspecified

== ENCOUNTER 2018-06-09 13:53 | Emergency (ER) | payer OTHER, MEDICAID ==
--- NOTE | 2018-06-09 14:36 | EDPHY ---
H & P Time Seen by Provider: 06/09/18 14:25 HPI/ROS: CHIEF COMPLAINT: I feel constipated HISTORY OF PRESENT ILLNESS: Patient was here on May 26 in June 02 treated for constipation. He says this is an intermittent problem from his psychiatric medications. He also has decreased oral intake. Over the last 2 hr he has developed some lower right-sided abdominal pain, he says he has had no bowel movement for the last 5 days. He feels little bit bloated. Symptoms moderate. Not better or worse with anything. REVIEW OF SYSTEMS: Eye: no change in vision ENT: no sore throat Cardiac: no chest pain or syncope Pulmonary: no cough or SOB Abdomen: HPI Musculoskeletal: no back pain Skin: no rash Neuro: no headache Constitutional: no fever : no urinary symptoms A comprehensive 10 point review of systems is otherwise negative aside from elements mentioned in the history of present illness. PAST MEDICAL HISTORY: Includes schizophrenia and right knee surgery Social history: Denies alcohol General Appearance: Alert and conversant, cooperative. Eyes: No scleral icterus. ENT, Mouth: Normal mucous membranes. Respiratory: Normal respiratory effort, breath sounds equal, lungs are clear to auscultation. Cardiovascular: Regular rate and rhythm. Gastrointestinal: Minimal diffuse abdominal tenderness but no rebound or guarding. Bowel sounds are present. Rectal vault is empty without stool, normal tone Neurological: Alert, face symmetric, ambulatory. Skin: Warm and dry, no rashes. Musculoskeletal: No peripheral edema. Psychiatric: Not agitated. Emergency Department course/MDM: Patient presents with abdominal discomfort and constipation symptoms but does not have any stool in the vault. This is his 3rd visit since May 26. Plan for [address] abdomen and pelvis to evaluate for obstruction or other possible intra a intestinal or intra-abdominal complication. Results discussed with the patient. Continue current treatment for constipation. Smoking Status: Former smoker Constitutional: Initial Vital Signs Temperature (C) 36.7 C 06/09/18 13:58 Heart Rate 86 06/09/18 13:58 Respiratory Rate 18 06/09/18 13:58 Blood Pressure 145/7 H 06/09/18 13:58 O2 Sat (%) 96 06/09/18 13:58 O2 Delivery Mode Room Air Allergies/Adverse Reactions: Penicillins Allergy (Unknown, Verified 06/02/18 16:57) Rash CATS Allergy (Uncoded 06/02/18 16:57) Itching Home Medications: Medication Instructions Recorded cloZAPine [Clozaril (*)] 200 mg PO HS 07/23/09 cloZAPine [Clozaril (*)] 100 mg PO DAILY 10/02/14 Lexapro 05/26/18 Medical Decision Making - Diagnostics Imaging Results: Imaging Impressions Abdomen CT 06/09/18 14:50 Impression: 1. No evidence of abdominopelvic inflammatory mass or ascites. Jose Novak was notified of these findings by telephone at 4 1:00 PM on 06/09/2018 - Data Points Laboratory Results: 06/09/18 14:43 POC Hgb 14.3 gm/dL gm/dL (13.7-17.5) POC Hct 42 % % (40-51) POC Sodium 140 mEq/L mEq/L (135-145) POC Potassium 4.2 mEq/L mEq/L (3.3-5.0) POC Chloride 104 mEq/L mEq/L (97-110) POC BUN 21 mg/dL mg/dL (7-23) POC Creatinine 1.1 mg/dL mg/dL (0.7-1.3) POC Glucose 110 mg/dL H mg/dL (70-100) Point of Care Test Results: Chemistry 06/09/18 14:43 POC Sodium 140 mEq/L mEq/L (135-145) POC Potassium 4.2 mEq/L mEq/L (3.3-5.0) POC Chloride 104 mEq/L mEq/L (97-110) POC BUN 21 mg/dL mg/dL (7-23) POC Creatinine 1.1 mg/dL mg/dL (0.7-1.3) POC Glucose 110 mg/dL H mg/dL (70-100) ISTAT H&H 06/09/18 14:43 POC Hgb 14.3 gm/dL gm/dL (13.7-17.5) POC Hct 42 % % (40-51) Departure - Departure Disposition: Home, Routine, Self-Care Clinical Impression: Constipation Qualifiers: Constipation type: unspecified constipation type Qualified Code(s): K59.00 - Constipation, unspecified Condition: Good Instructions: Constipation (ED) Additional Instructions: Continue with oral fluids and fiber. You can use [id number] Dulcolax or MiraLax, or prune juice. Your CT scan showed constipation but no other abnormalities. Referrals: Lyles,Cal, MD [Primary Care Provider] - As per Instructions
[2018-06-09] MEDS ORDERED: IOPAMIDOL (ISOVUE 370) 100 ML BTL IV ONE (15:17)
[2018-06-09 16:29] VITALS: BP 143/77
== END 2018-06-09 16:29 | disposition home or self-care (01) ==
DX: K59.00 Constipation, unspecified (principal)
CPT/HCPCS: 74177; 99285; Q9967; 82435-PO; 82565-PO; 82947-PO; 84132-PO; 84295-PO; 84520-PO; 85014-ER

== ENCOUNTER 2018-06-26 09:51 | Emergency (ER) | payer OTHER, MEDICAID ==
[2018-06-26 09:59] VITALS: BP 116/89
--- NOTE | 2018-06-26 10:08 | EDPHY ---
H & P Stated Complaint: chronic constipation seen 3x in may/not taking metamucil/ lactulose prescrib Time Seen by Provider: 06/26/18 10:06 HPI/ROS: CHIEF COMPLAINT: Chronic constipation HISTORY OF PRESENT ILLNESS: The patient presents the emergency department with complaints of chronic constipation. This will be the patient's 4th visit to the emergency department this year. The patient has had a CT scan and plain film of the abdomen which demonstrate no significant intra-abdominal process. The patient reports that he has been using MiraLax on a daily basis as well as fiber supplementation 3 times a day. The patient has not seen his primary care provider personally. The patient denies any fever, cough or congestion. He denies additional acute complaints. REVIEW OF SYSTEMS: A comprehensive 10 point review of systems is otherwise negative aside from elements mentioned in the history of present illness. Source: Patient Exam Limitations: No limitations - Personal History Current Tetanus Diphtheria and Acellular Pertussis (TDAP): Yes Tetanus Vaccine Date: 2008 - Medical/Surgical History Hx Asthma: No Hx Chronic Respiratory Disease: No Hx Diabetes: No Hx Cardiac Disease: No Hx Renal Disease: No Hx Cirrhosis: No Hx Alcoholism: No Hx HIV/AIDS: No Hx Splenectomy or Spleen Trauma: No Other PMH: paranoid schizophrenia, right knee surgery, anxiety - Social History Smoking Status: Former smoker - Physical Exam Exam: General Appearance: Slightly disheveled male, no acute distress Eyes: Pupils equal and round no pallor or injection ENT, Mouth: Mucous membranes moist Respiratory: There are no retractions, lungs are clear to auscultation Cardiovascular: Regular rate and rhythm Gastrointestinal: Abdomen is soft and nontender, no masses, bowel sounds normal Rectal: Empty vault without evidence of impaction Neurological: 5/5 strength noted all 4 extremities Skin: Warm and dry, no rashes Musculoskeletal: Neck is supple nontender Extremities: symmetrical, full range of motion Psychiatric: Patient is oriented X 3, there is no agitation Constitutional: Initial Vital Signs Temperature (C) 36.8 C 06/26/18 09:57 Heart Rate 88 06/26/18 09:57 Respiratory Rate 18 06/26/18 09:57 Blood Pressure 116/89 H 06/26/18 09:57 O2 Sat (%) 95 06/26/18 09:57 O2 Delivery Mode Room Air Allergies/Adverse Reactions: Penicillins Allergy (Unknown, Verified 06/26/18 09:55) Rash CATS Allergy (Uncoded 06/02/18 16:57) Itching Home Medications: Medication Instructions Recorded cloZAPine [Clozaril (*)] 200 mg PO HS 07/23/09 cloZAPine [Clozaril (*)] 100 mg PO DAILY 10/02/14 Wellbutrin 100mg (*) 06/26/18 Medical Decision Making ED Course/Re-evaluation: Patient's rectal exam demonstrates no evidence of impaction. I reviewed the patient's past medical history. I find his abdominal examination to be benign. The patient seems to be quite fixated on his bowel movements. I have encouraged him to continue the regimen outlined by his PCP. He can also use milk of magnesia as needed. The patient has been instructed to work with his primary care provider for management of his chronic constipation. Departure - Departure Disposition: Home, Routine, Self-Care Clinical Impression: Chronic constipation Condition: Good Instructions: Constipation (ED) Additional Instructions: 1. Continue medications as recommended by your primary care provider. Please work with your primary care provider surrounding any ongoing issues with your chronic constipation. 2. I do recommend trying milk of magnesia to see if this improves your symptoms. Referrals: Jhonatan Lyles MD [Primary Care Provider] - As per Instructions
== END 2018-06-26 10:16 | disposition home or self-care (01) ==
DX: K59.04 Chronic idiopathic constipation (principal); F20.0 Paranoid schizophrenia; F41.9 Anxiety disorder, unspecified; Z87.891 Personal history of nicotine dependence; Z88.0 Allergy status to penicillin

== ENCOUNTER 2018-09-16 11:43 | Emergency (ER) | payer OTHER, MEDICAID | END 2018-09-16 13:09 | disposition home or self-care (01) | DX: M46.1 Sacroiliitis, not elsewhere classified (principal); N17.9 Acute kidney failure, unspecified; F20.0 Paranoid schizophrenia; F41.9 Anxiety disorder, unspecified; Z87.891 Personal history of nicotine dependence ==